=== PATIENT | female | born 1975 | race Hispanic/Latino ===

== ENCOUNTER 2017-09-17 20:56 | Emergency (ER) | payer OTHER ==
[~2017-09-17] VITALS: Ht 167.6 cm; Wt 79.4 kg
[2017-09-17] MEDS: ONDANSETRON HCL 4 MG ORAL DISINTEGRATING TAB SL ONE (21:15)
[2017-09-17] MEDS: DICYCLOMINE HCL 20 MG TAB PO ONE (21:15)
[2017-09-17] MEDS ORDERED: ZOFRAN ODT4 MG SL (22:01)
[2017-09-17] MEDS ORDERED: DICYCLOMINE HCL20 MG PO (22:01)
[2017-09-17 22:24] VITALS: BP 142/72
== END 2017-09-17 22:10 | disposition home or self-care (01) ==
LOC: FSED 20:56
DX: R19.7 Diarrhea, unspecified (principal)
CPT/HCPCS: 99282

== ENCOUNTER 2019-03-16 13:16 | Emergency (ER) | payer OTHER ==
[~2019-03-16] VITALS: Ht 167.6 cm; Wt 86.2 kg
[~2019-03-16 13:16] MED LIST: DICYCLOMINE HCL20 MG PO; ZOFRAN ODT4 MG SL
--- OUTSIDE RECORDS SUMMARY | 2019-03-16 13:19 | XMS REPORT | Summary of Care ---
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 Vital Signs Most recent to 1 oldest [Reference Range]: Height 167.64 cm (08/03/14 9:37 AM) Weight 107.273 kg (08/03/14 9:37 AM) Body Mass Index 38.17 m2 (08/03/14 9:37 AM) Problem List Condition Effective Dates Status Health Status Informant [D]Acute Active pain(Confirmed) [D]Pelvic Active mass(Confirmed) Exploratory 03/11/12 Active laparotomy(Confirmed ) Allergies, Adverse Reactions, Alerts Substance Reaction Severity Status NKDA Active Medications No data available for this section Medications Administered During Your Visit No data available for this section Immunizations Vaccine Date Refusal Reason influenza virus vaccine, inactivated 03/16/12 Social History Social History Type Response
--- OUTSIDE RECORDS SUMMARY | 2019-03-16 13:19 | XMS REPORT | Summary of Care ---
Author Author [facility] [place] Organization [facility] [place] Address Unknown Phone Unavailable Encounter [facility] Donna_doc(FIN) [id number] Date(s): 11/17/16 - 11/17/16 [facility] [place] [address] [place] [phone] Discharge Disposition: Home or Self Care Attending Physician: Van Hoffman MD Vital Signs No data available for this section Problem List Condition Effective Dates Status Health Status Informant [D]Acute Resolved pain(Confirmed) [D]Pelvic Resolved mass(Confirmed) Abdominal mass1 02/21/12 Active Exploratory 03/11/12 Resolved laparotomy(Confirmed ) Malignant tumor of 03/18/12 Active unknown origin2 (Confirmed) 06/08/08 - 08/03/08 Resolved (Confirmed) 02/18/09 - 11/25/09 Resolved (Confirmed) 11/18/14 - 12/14/14 Resolved 1Data migrated from [employer] on 11/21/14. 2Data migrated from [employer] on 11/21/14. Allergies, Adverse Reactions, Alerts Substance Reaction Severity Status NKDA Active Medications No data available for this section Results No data available for this section Immunizations Given and Recorded Vaccine Date Status Refusal Reason influenza virus vaccine, inactivated 03/16/12 Given Procedures Procedure Date Related Diagnosis Body Site Removal - procedure1, 2 03/11/12 Cholecystectomy 11/01/10 section 11/25/09 1Rem,oval of benign tumor, L tube and ovary 2with blood transfusion Social History Social History Type Response Substance Abuse Use: None. Alcohol Past1 Smoking Status Never smoker; Exposure to Tobacco Smoke None; Cigarette Smoking Last 365 Days No; Reg Smoking Cessation Counseling No 1socially when not or breastfeedng Assessment and Plan No data available for this section
--- OUTSIDE RECORDS SUMMARY | 2019-03-16 13:19 | XMS REPORT | Summary of Care ---
Author Author [facility] [place] Organization [facility] [place] Address Unknown Phone Unavailable Encounter HQ Donna_doc(FIN) [id number] Date(s): 07/24/16 - 07/24/16 [facility] [place] [address] [place] [phone] Final: Encounter for screening mammogram for malignant neoplasm of breast Discharge Disposition: Home or Self Care Attending [...] - 12/14/14 Resolved 1Data migrated from [employer] on 11/21/14. 2Data migrated from [employer] on 11/21/14. Allergies, Adverse Reactions, Alerts Substance [...]
--- OUTSIDE RECORDS SUMMARY | 2019-03-16 13:19 | XMS REPORT | Summary of Care ---
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 Phone Van Hoffman PCP Encounter [facility] [id number] Date(s): 12/14/14 - 12/16/[address] [address]- Discharge Disposition: Home Physician Attending: Van Hoffman MD Physician Admitting: Van Hoffman MD Vital Signs 1 2 3 Most recent to oldest [Reference Range]: 167.64 cm (12/14/14 8:08 AM) 167.64 cm (12/11/14 12:32 PM) Height 98.3 DegF (12/16/14 12:00 PM) 98.2 DegF (12/16/14 8:00 AM) 98.6 DegF (12/16/14 4:00 AM) Temperature Oral [96.4-99.1 DegF] 120/74 mmHg (12/16/14 12:00 PM) 116/76 mmHg (12/16/14 8:00 AM) 113/75 mmHg (12/16/14 4:00 AM) Blood Pressure [90-140/60-90 mmHg] 18 BRMIN (12/16/14 12:00 PM) 18 BRMIN (12/16/14 8:00 AM) 18 BRMIN (12/16/14 4:00 AM) Respiratory Rate [14-20 BRMIN] 80 bpm (12/16/14 12:00 PM) 70 bpm (12/16/14 8:00 AM) 77 bpm (12/16/14 4:00 AM) Peripheral Pulse Rate [60-100 bpm] 109.545 kg (12/15/14 1:54 PM) 110 kg (12/14/14 8:08 AM) 109.545 kg (12/11/14 12:32 PM) Weight 39.14 m2 (12/14/14 8:08 AM) 38.98 m2 (12/11/14 12:32 PM) Body Mass Index Problem List Condition Effective Dates Status Health Status Informant [D]Acute Resolved pain(Confirmed) [D]Pelvic Resolved mass(Confirmed) Abdominal mass1 02/21/12 Active Exploratory 03/11/12 Resolved laparotomy(Confirmed ) Malignant tumor of 03/18/12 Active unknown origin2 (Confirmed) 06/08/08 - 08/03/08 Resolved (Confirmed) 02/18/09 - 11/25/09 Resolved (Confirmed) 11/18/14 - 12/14/14 Resolved 1Data migrated from [employer] on 11/21/14. 2Data migrated from [employer] on 11/21/14. Allergies, Adverse Reactions, Alerts Substance Reaction Severity Status NKDA Active Medications acetaminophen 650 mg, 2 tab, Route: PO, Drug form: TAB, Q4H, Dosing Weight 110, kg, PRN Other -See Comment, Start date: 12/14/14 12:11:00, Duration: 30 day, Stop date: 12:10:00 Notes: Do not exceed 4 gm/day. (Same as: Tylenol) Start Date: 12/14/14 Stop Date: 12/16/14 Status: Discontinued acetaminophen-hydrocodone 325 mg-10 mg oral tablet 1 tab, Route: PO, Drug Form: TAB, Dosing Weight 110, kg, Q4H, PRN Pain Score 7-1 0, Start date: 12/14/14 12:11:00, Duration: 30 day, Stop date: 01/13/15 12:10:00 Notes: Do not exceed 4gm/day of acetaminophen. (Same as: [place] 325/10) Start Date: 12/14/14 Stop Date: 12/16/14 Status: Discontinued acetaminophen-hydrocodone 325 mg-5 mg oral tablet 1 tab, Route: PO, Drug Form: TAB, Dosing Weight 110, kg, Q4H, PRN Pain Score 4-6 , Start date: 12/14/14 12:11:00, Duration: 30 day, Stop date: 01/13/15 12:10:00 Notes: (Same as: [place] 325/5) Do not exceed 4gm/day of acetaminophen. Start Date: 12/14/14 Stop Date: 12/16/14 Status: Discontinued Benadryl 25 mg, 0.5 mL, Route: IM, Drug form: INJ, Q8H, Dosing Weight 110, kg, PRN Itchin g, Start date: 12/14/14 9:34:00, Duration: 30 day, Stop date: 01/13/15 9:33:00 Notes: (Same as: Benadryl) Start Date: 12/14/14 Stop Date: 12/16/14 Status: Discontinued bisacodyl 10 mg, 1 supp, Route: DC, Drug form: SUPP, PRN, Dosing Weight 110, kg, PRN Other -See Comment, Start date: 12/14/14 12:11:00, Duration: 30 day, Stop date: 01/13 12:10:00 Notes: (Same As: Dulcolax, Bisco-Lax) Start Date: 12/14/14 Stop Date: 12/16/14 Status: Discontinued bisacodyl 15 mg, 3 tab, Route: PO, Drug form: ECTAB, Daily, Dosing Weight 110, kg, PRN Oth er -See Comment, Start date: 12/14/14 12:11:00, Duration: 30 day, Stop date: 12:10:00 Notes: (Same As: Dulcolax, Correctol) (Do Not Crush) "Do Not Crush" Start Date: 12/14/14 Stop Date: 12/16/14 Status: Discontinued carboprost 250 microgram, 1 mL, Route: IM, Drug form: INJ, ONCALL, Dosing Weight 110, kg, S tart date: 12/14/14 9:00:00, Duration: 30 day, Stop date: 01/13/15 8:59:00 Notes: (Same As: Hemabate) Start Date: 12/14/14 Stop Date: 12/14/14 Status: Discontinued ceFAZolin 2 gm, Route: IVPB, ONCALL, Dosing Weight 110, kg, Start date: 12/14/14 9:00:00, Duration: 1 doses or times Start Date: 12/14/14 Stop Date: 12/14/14 Status: Deleted ceFAZolin + Sodium Chloride 0.9% IV 100 mL 1 gm, Route: IVPB, ONCALL, Start date: 12/14/14 9:00:00, Duration: 1 doses or ti mes Notes: (Same As: Ancef, Kefzol) MEDICATION WASTE Product Size: 1000 mgP roduct Wasted: ___ mg Start Date: 12/14/14 Stop Date: 12/14/14 Status: Completed ceFAZolin + Sodium Chloride 0.9% IV 100 mL 1 gm, Route: IVPB, ONCALL, Start date: 12/14/14 9:00:00, Duration: 1 doses or ti mes Notes: (Same As: Ancef, Kefzol) MEDICATION WASTE Product Size: 1000 mgP roduct Wasted: ___ mg Start Date: 12/14/14 Stop Date: 12/14/14 Status: Completed citric acid-sodium citrate 30 ml, Route: PO, Drug Form: SOLN, Dosing Weight 110, kg, PRE OP, Start date: 10:00:00, Duration: 30 day, Stop date: 01/13/15 9:59:00 Notes: (Same As: Bicitra) Start Date: 12/14/14 Stop Date: 12/14/14 Status: Discontinued citric acid-sodium citrate 30 mL, Route: PO, Drug Form: SOLN, Dosing Weight 110, kg, ONCE, Start date: 11/24 08/09 8:17:00, Duration: 1 doses or times, Stop date: 12/14/14 8:17:00 Notes: (Same As: Bicitra) Start Date: 12/14/14 Stop Date: 12/14/14 Status: Completed Cytotec 1,000 microgram, 5 tab, Route: DC, Drug form: TAB, ONCE, Start date: 12/14/14 11 :38:00, Stop date: 12/14/14 11:38:00 Notes: (Same as:Cytotec) Take with food Start Date: 12/14/14 Stop Date: 12/14/14 Status: Completed diphenhydrAMINE 12.5 mg, 0.25 mL, Route: IVP, Drug form: INJ, PRN, Dosing Weight 110, kg, PRN It duarte, Start date: 12/14/14 9:33:00, Duration: 30 day, Stop date: 01/13/15 9:32: 00 Notes: (Same as: Benadryl) Start Date: 12/14/14 Stop Date: 12/14/14 Status: Discontinued ePHEDrine 5 mg, 0.1 mL, Route: IVP, Drug form: INJ, Q5Min, Dosing Weight 110, kg, PRN Low Blood Pressure, Start date: 12/14/14 9:33:00, Duration: 30 day, Stop date: 01/13 9:32:00 Notes: (Same as: ePHEDrine Sulfate) Start Date: 12/14/14 Stop Date: 12/14/14 Status: Discontinued famotidine 20 mg, 2 mL, Route: IVP, Drug form: INJ, ONCE, Dosing Weight 110, kg, Start date : 12/14/14 8:17:00, Duration: 1 doses or times, Stop date: 12/14/14 8:17:00 Notes: (Same as: Pepcid)Can be dilute in 5-10cc NS IVP: Slow IV push over at le ast 2 minutes. Start Date: 12/14/14 Stop Date: 12/14/14 Status: Discontinued famotidine 20 mg, 2 mL, Route: IVP, Drug form: INJ, PRE OP, Dosing Weight 110, kg, Start da te: 12/14/14 10:00:00, Duration: 30 day, Stop date: 01/13/15 9:59:00 Notes: (Same as: Pepcid)Can be dilute in 5-10cc NS IVP: Slow IV push over at le ast 2 minutes. Start Date: 12/14/14 Stop Date: 12/14/14 Status: Completed glycopyrrolate 0.2 mg, 1 mL, Route: IVP, Drug form: INJ, Q5Min, Dosing Weight 110, kg, PRN Adrian ycardia, Start date: 12/14/14 9:33:00, Duration: 3 doses or times, Stop date: Zeenat jason # of times Notes: (Same as: Kirti) Start Date: 12/14/14 Stop Date: 12/14/14 Status: Discontinued ibuprofen 600 mg, 1 tab, Route: PO, Drug form: TAB, Q6H, Dosing Weight 110, kg, PRN Pain S core 1-5, Start date: 12/14/14 12:11:00, Duration: 30 day, Stop date: 01/13/15 1 2:10:00 Notes: (Same as: Motrin)"Do Not Crush" Take with food. Start Date: 12/14/14 Stop Date: 12/16/14 Status: Discontinued ibuprofen 800 mg, 1 tab, Route: PO, Drug form: TAB, Q8H, Dosing Weight 110, kg, PRN Pain S core 6-10, Start date: 12/14/14 12:11:00, Duration: 30 day, Stop date: 01/13/15 12:10:00 Notes: (Same as: Motrin)"Do Not Crush" Take with food. Start Date: 12/14/14 Stop Date: 12/16/14 Status: Discontinued ketOROLAC 30 mg/mL injectable solution 30 mg, 1 mL, Route: IM, Drug form: INJ, Q6H, Dosing Weight 110, kg, PRN Pain Sco re 4-6, Start date: 12/14/14 9:34:00, Duration: 4 day, Stop date: 12/18/14 9:33: 00 Notes: (Same as:Toradol) IV bolus must be given >15 seconds. Give IM administration slowly and deeply into the muscle.Not for use > 4 days MEDICATION WASTE Product Size: 30 mgProduct Wasted: ___ mg Start Date: 12/14/14 Stop Date: 12/16/14 Status: Discontinued Lactated Ringers Injection IV 1,000 mL 1,000 mL, Rate: 25 ml/hr, Infuse over: 40 hr, Route: IV, Dosing Weight 110 kg, T otal Volume: 1,000, Start date: 12/14/14 9:33:00, Duration: 30 day, Stop date: 0 01/13/15 9:32:00 Start Date: 12/14/14 Stop Date: 12/14/14 Status: Discontinued Lactated Ringers Injection IV 1,000 mL 1,000 mL, Rate: 125 ml/hr, Infuse over: 8 hr, Route: IV, Dosing Weight 110 kg, T otal Volume: 1,000, Start date: 12/14/14 8:17:00, Duration: 30 day, Stop date: 0 01/13/15 8:16:00 Start Date: 12/14/14 Stop Date: 12/14/14 Status: Discontinued Lactated Ringers IV 1,000 mL 1,000 mL, Rate: 100 ml/hr, Infuse over: 10 hr, Route: IV, Dosing Weight 110 kg, Total Volume: 1,000, Start date: 12/14/14 12:11:00, Duration: 30 day, Stop date: 01/13/15 12:10:00 Start Date: 12/14/14 Stop Date: 12/16/14 Status: Discontinued lanolin topical cream 1 appl, Route: TOP, PRN, Drug form: OINT, PRN Other -See Comment, Start date: 12:11:00, Duration: 30 day, Stop date: 01/13/15 12:10:00 Notes: (Same as:Lanolin) Start Date: 12/14/14 Stop Date: 12/16/14 Status: Discontinued M-M-R II 0.5 mL, Route: SUB-Q, Drug Form: PDR/INJ, Dosing Weight 110, kg, ONCALL, Start d ate: 12/14/14 13:00:00, Duration: 1 doses or times Notes: (Same as: M-M-R II) (phhwgrw-ifbgi-aybwtwh virus vaccine 0.5 ml INJ VL) GIVE PRIOR TO DISCHARGE Start Date: 12/14/14 Stop Date: 12/16/14 Status: Discontinued methylergonovine 0.2 mg, 1 mL, Route: IM, Drug form: INJ, ONCALL, Dosing Weight 110, kg, Start da te: 12/14/14 9:00:00, Duration: 30 day, Stop date: 01/13/15 8:59:00 Notes: (Same as:Methergine) Start Date: 12/14/14 Stop Date: 12/14/14 Status: Discontinued metoclopramide 10 mg, 2 mL, Route: IVP, Drug form: INJ, PRE OP, Dosing Weight 110, kg, Start da te: 12/14/14 10:00:00, Duration: 30 day, Stop date: 01/13/15 9:59:00 Notes: (Same as: Reglan) Start Date: 12/14/14 Stop Date: 12/14/14 Status: Completed metoclopramide 10 mg, 2 mL, Route: IV, Drug form: INJ, Q6H, Dosing Weight 110, kg, PRN Nausea & Vomiting, Start date: 12/14/14 8:17:00, Duration: 30 day, Stop date: 01/13/15 8 :16:00 Notes: (Same as: Reglan) Start Date: 12/14/14 Stop Date: 12/14/14 Status: Discontinued misoprostol 1,000 microgram, 5 tab, Route: DC, Drug form: TAB, ONCALL, Dosing Weight 110, kg , Start date: 12/14/14 9:00:00, Duration: 30 day, Stop date: 01/13/15 8:59:00 Notes: (Same as:Cytotec) Take with food Start Date: 12/14/14 Stop Date: 12/14/14 Status: Discontinued morphine Sulfate 2 mg, 1 mL, Route: IVP, Drug form: INJ, Q2H, Dosing Weight 110, kg, PRN Pain Sco re 7-10, Start date: 12/14/14 9:34:00, Duration: 30 day, Stop date: 01/13/15 9:3 3:00 Notes: (Same as:MORPhine Sulfate) Start Date: 12/14/14 Stop Date: 12/16/14 Status: Discontinued morphine Sulfate 2 mg, 1 mL, Route: IVP, Drug form: INJ, Q2H, Dosing Weight 110, kg, PRN Pain Sco re 7-10, Start date: 12/14/14 8:17:00, Duration: 30 day, Stop date: 01/13/15 8:1 6:00 Notes: (Same as:MORPhine Sulfate) Start Date: 12/14/14 Stop Date: 12/14/14 Status: Discontinued naloxone 0.1 mg, 0.25 mL, Route: IVP, Drug form: INJ, Q2MIN, Dosing Weight 110, kg, PRN N arcotic Reversal, Start date: 12/14/14 10:47:00, Duration: 8 doses or times, Sto p date: Limited # of times Notes: Same as Narcan Start Date: 12/14/14 Stop Date: 12/16/14 Status: Discontinued naloxone 0.04 mg, 0.1 mL, Route: IVP, Drug form: INJ, Q2MIN, Dosing Weight 110, kg, PRN N arcotic Reversal, Start date: 12/14/14 9:33:00, Duration: 8 doses or times, Stop date: Limited # of times Notes: Same as Herreraan Start Date: 12/14/14 Stop Date: 12/14/14 Status: Discontinued ondansetron 4 mg, 2 mL, Route: IV, Drug form: INJ, Q4H, Dosing Weight 110, kg, PRN Nausea, S tart date: 12/14/14 9:34:00, Duration: 30 day, Stop date: 01/13/15 9:33:00 Notes: (Same as: Yordy) MEDICATION WASTE Product Size: 4 mgProduct Was shyanne: ___ mg Start Date: 12/14/14 Stop Date: 12/16/14 Status: Discontinued ondansetron 4 mg, 2 mL, Route: IVP, Drug form: INJ, Q8H, Dosing Weight 110, kg, PRN Nausea & Vomiting, Start date: 12/14/14 8:17:00, Duration: 30 day, Stop date: 01/13/15 8 :16:00 Notes: (Same as: Yordy) MEDICATION WASTE Product Size: 4 mgProduct Was shyanne: ___ mg Start Date: 12/14/14 Stop Date: 12/14/14 Status: Discontinued ondansetron 4 mg, 2 mL, Route: IVP, Drug form: INJ, ONCE, Dosing Weight 110, kg, PRN Nausea & Vomiting, Start date: 12/14/14 9:33:00 Notes: (Same as: Yordy) MEDICATION WASTE Product Size: 4 mgProduct Was shyanne: ___ mg Start Date: 12/14/14 Stop Date: 12/14/14 Status: Discontinued oxytocin 30 units in LR 500 mL 30 unit 30 unit, 500 mL, Rate: 42 ml/hr, Infuse over: 11.9 hr, Dosing Weight 110, kg, Ro [place]: IV, Total Volume: 500 mL, Start date: 12/14/14 12:11:00, Duration: 1 doses or times, Stop date: 12/15/14 0:04:00, Replace Every: 11.9 hr Start Date: 12/14/14 Stop Date: 12/15/14 Status: Completed oxytocin 30 units in LR 500 mL 30 unit 30 unit, 500 mL, Rate: 42 ml/hr, Infuse over: 11.9 hr, Dosing Weight 110, kg, Ro [place]: IV, Total Volume: 500 mL, Start date: 12/14/14 8:17:00, Duration: 1 doses o r times, Stop date: 12/14/14 20:10:00, Replace Every: 11.9 hr Start Date: 12/14/14 Stop Date: 12/14/14 Status: Completed Phenergan 12.5 mg, 0.5 mL, Route: IM, Drug form: INJ, Q4H, Dosing Weight 110, kg, PRN Naus ea, Start date: 12/14/14 9:34:00, Duration: 30 day, Stop date: 01/13/15 9:33:00 Notes: Do not give IV push. (Same as: Phenergan) Start Date: 12/14/14 Stop Date: 12/16/14 Status: Discontinued Multivitamins oral tablet 1 tab, Route: PO, Drug Form: TAB, Dosing Weight 110, kg, Daily, Start date: 11/24 09/06 9:00:00, Duration: 30 day, Stop date: 01/13/15 9:00:00 Start Date: 12/15/14 Stop Date: 12/16/14 Status: Discontinued Saline Flush 0.9% 10 ml, Route: IVP, Drug Form: INJ, Dosing Weight 110, kg, PRN, PRN Line Flush, S tart date: 12/14/14 12:11:00, Duration: 30 day, Stop date: 01/13/15 12:10:00 Notes: Same as: BD Posiflush Sterile Start Date: 12/14/14 Stop Date: 12/16/14 Status: Discontinued Saline Flush 0.9% 10 ml, Route: IVP, Drug Form: INJ, Dosing Weight 110, kg, Q12H, Start date: 11/24 08/09 21:00:00, Duration: 30 day, Stop date: 01/13/15 9:00:00 Notes: Same as: BD Posiflush Sterile Start Date: 12/14/14 Stop Date: 12/16/14 Status: Discontinued simethicone 160 mg, 2 tab, Route: PO, Drug form: CHEWTAB, Q8H, Dosing Weight 110, kg, PRN Ga s, Start date: 12/14/14 12:11:00, Duration: 30 day, Stop date: 01/13/15 12:10:00 Notes: (Same as: Beck) Start Date: 12/14/14 Stop Date: 12/16/14 Status: Discontinued terbutaline 0.25 mg, 0.25 mL, Route: SUB-Q, Drug form: INJ, ONCALL, Dosing Weight 110, kg, P RN Other -See Comment, Start date: 12/14/14 8:17:00, Duration: 1 doses or times, Stop date: Limited # of times Notes: DO NOT USE IN PAINT PREPPER AREA(Same As: Marlen) Start Date: 12/14/14 Stop Date: 12/14/14 Status: Discontinued zolpidem 5 mg, 1 tab, Route: PO, Drug form: TAB, Bedtime, Dosing Weight 110, kg, PRN Inso mnia, Start date: 12/14/14 12:11:00, Duration: 30 day, Stop date: 01/13/15 12:10 :00 Notes: (Same As: Sarahi) Start Date: 12/14/14 Stop Date: 12/16/14 Status: Discontinued Results BLOOD BANK RESULTS Most recent to 1 2 oldest [Reference Range]: ABO/Rh O POS *Unknown* (12/11/14 12:42 PM) Antibody Scrn Negative (12/11/14 12:42 PM) URINE AND STOOL Most recent to 1 2 oldest [Reference Range]: UA Turbidity [Clear] Cloudy *ABN* (12/11/14 12:42 PM) UA Color [Yellow] Yellow *NA* (12/11/14 12:42 PM) UA pH [5.0-8.0] 6.0 (12/11/14 12:42 PM) UA Spec Grav 1.020 [<=1.030] (12/11/14 12:42 PM) UA Glucose Negative [Negative] (12/11/14 12:42 PM) UA Blood [Negative] Moderate *ABN* (12/11/14 12:42 PM) UA Ketones Negative [Negative] *NA* (12/11/14 12:42 PM) UA Protein Negative [Negative] (12/11/14 12:42 PM) UA Urobilinogen 0.2 EU/dL [0.1-1.0 EU/dL] (12/11/14 12:42 PM) UA Bili [Negative] Negative *NA* (12/11/14 12:42 PM) UA Leuk Est Small [Negative] *ABN* (12/11/14 12:42 PM) UA Nitrite Positive [Negative] *ABN* (12/11/14 12:42 PM) UA WBC [None Seen 21-50 /HPF /HPF] *ABN* (12/11/14 12:42 PM) UA RBC [0-2 /HPF] 6-10 /HPF *ABN* (12/11/14 12:42 PM) UA Bacteria [None Moderate /HPF Seen /HPF] (12/11/14 12:42 PM) UA Sq Epi [Few /LPF] Few /LPF (12/11/14 12:42 PM) UA Amorph Khadijah [None Few /HPF Seen /HPF] *ABN* (12/11/14 12:42 PM) UA Mucus [None Seen Rare /LPF /LPF] (12/11/14 12:42 PM) Micro? Performed (12/11/14 12:42 PM) IMMUNOLOGY Most recent to 1 2 oldest [Reference Range]: RPR [Non Reactive] Non Reactive (12/11/14 12:42 PM) HIV 1/2 Ab Negative [Negative] *NA* (12/11/14 12:42 PM) Hep Bs Ag [Negative] Negative *NA* (12/11/14 12:42 PM) HEMATOLOGY Most recent to 1 2 oldest [Reference Range]: WBC [3.7-10.4 K/CMM] 10.8 K/CMM 10.2 K/CMM *HI* (12/11/14 12:42 PM) (12/15/14 4:07 AM) RBC [4.20-5.40 3.64 M/CMM 4.16 M/CMM M/CMM] *LOW* *LOW* (12/15/14 4:07 AM) (12/11/14 12:42 PM) Hgb [12.0-16.0 g/dL] 10.8 g/dL 12.4 g/dL *LOW* (12/11/14 12:42 PM) (12/15/14 4:07 AM) Hct [36.0-48.0 %] 32.7 % 36.9 % *LOW* (12/11/14 12:42 PM) (12/15/14 4:07 AM) MCV [80.0-98.0 fL] 89.8 fL 88.8 fL (12/15/14 4:07 AM) (12/11/14 12:42 PM) MCH [27.0-31.0 pg] 29.7 pg 29.7 pg (12/15/14 4:07 AM) (12/11/14 12:42 PM) MCHC [32.0-36.0 33.1 g/dL 33.5 g/dL g/dL] (12/15/14 4:07 AM) (12/11/14 12:42 PM) RDW [11.5-14.5 %] 15.2 % 14.7 % *HI* *HI* (12/15/14 4:07 AM) (12/11/14 12:42 PM) Platelet [133-450 156 K/CMM 189 K/CMM K/CMM] (12/15/14 4:07 AM) (12/11/14 12:42 PM) MPV [7.4-10.4 fL] 9.7 fL 10.3 fL (12/15/14 4:07 AM) (12/11/14 12:42 PM) Segs [45.0-75.0 %] 75.1 % 70.8 % *HI* (12/11/14 12:42 PM) (12/15/14 4:07 AM) Lymphocytes 17.5 % 22.5 % [20.0-40.0 %] *LOW* (12/11/14:42 PM) (12/15/14 4:07 AM) Monocytes [2.0-12.0 6.9 % 5.8 % %] (12/15/14 4:07 AM) (12/11/14 12:42 PM) Eosinophils [0.0-4.0 0.3 % 0.6 % %] (12/15/14 4:07 AM) (12/11/14 12:42 PM) Basophils [0.0-1.0 0.2 % 0.3 % %] (12/15/14 4:07 AM) (12/11/14 12:42 PM) Segs-Bands # 8.1 K/CMM 7.2 K/CMM [1.5-8.1 K/CMM] (12/15/14 4:07 AM) (12/11/14 12:42 PM) Lymphocytes # 1.9 K/CMM 2.3 K/CMM [1.0-5.5 K/CMM] (12/15/14 4:07 AM) (12/11/14 12:42 PM) Monocytes # [0.0-0.8 0.7 K/CMM 0.6 K/CMM K/CMM] (12/15/14 4:07 AM) (12/11/14 12:42 PM) Eosinophils # 0.0 K/CMM 0.1 K/CMM [0.0-0.5 K/CMM] (12/15/14 4:07 AM) (12/11/14 12:42 PM) Basophils # [0.0-0.2 0.0 K/CMM 0.0 K/CMM K/CMM] (12/15/14 4:07 AM) (12/11/14 12:42 PM) Immunizations Vaccine Date Refusal Reason influenza virus vaccine, inactivated 03/16/12 Procedures Procedure Date Related Diagnosis Body Site [...] when not or breastfeedng Assessment and Plan Extracted from: Title: Postop Anesthesia Note Author: Ivan Johnston MD Date: 12/15/14 Adequate pain control. Doing well.
--- OUTSIDE RECORDS SUMMARY | 2019-03-16 13:19 | XMS REPORT | Summary of Care ---
Author Organization Unknown Address Unknown Phone Unavailable Care Team Providers Care Claim Examiner Name Role Phone Van Hoffman PCP Encounter [facility](LUISA) [id number] Date(s): 11/18/14 - 11/18/[address] [address]- Discharge Disposition: Home Physician Attending: Van Hoffman MD Physician Admitting: Van Hoffman MD Vital Signs Most recent to 1 oldest [Reference Range]: Height 167.64 cm (11/18/14 10:21 AM) Weight 109.091 kg (11/18/14 10:21 AM) Body Mass Index 38.82 m2 (11/18/14 10:21 AM) Problem List Condition Effective Dates Status Health Status Informant [D]Acute Resolved pain(Confirmed) [D]Pelvic Resolved mass(Confirmed) Exploratory 03/11/12 Resolved laparotomy(Confirmed ) (Confirmed) 06/08/08 - 08/03/08 Resolved (Confirmed) 02/18/09 - 11/25/09 Resolved (Confirmed) 11/18/14 Active Allergies, Adverse Reactions, Alerts Substance Reaction Severity Status NKDA Active Medications PNV-Total 1 cap, PO, Daily, 0 Refill(s) Start Date: 11/18/14 Status: Ordered Results No data available for this section [...]
--- OUTSIDE RECORDS SUMMARY | 2019-03-16 13:19 | XMS REPORT | CCD ---
Author Author Auto Generated Organization [facility] Address Unknown Phone Unavailable Care Team Providers Care Property Management Assistant Name Role Phone Van Hoffman RP Allergies, Adverse Reactions, Alerts Substance Reaction Status NKDA Active
--- OUTSIDE RECORDS SUMMARY | 2019-03-16 13:19 | XMS REPORT | Continuity of Care Document ---
Author Author [facility] Address Unknown Phone Unavailable Care Team Providers Care Key Entry Operator Name Role Phone DataPad Unavailable Unavailable Problems Problem Status Onset Date Classification Date Reported Comments Source HEAD PAIN/PROB SWALLOWING Active 03/16/2019 [facility] Immunization due 03/15/2019 Diagnosis 03/15/2019 [facility] Numbness of face 03/15/2019 Diagnosis 03/15/2019 [facility] Body mass index 30+ - obesity 03/15/2019 Diagnosis 03/15/2019 [facility] DX: CALLBACK RT MASS Active 10/01/2018 [facility] Overweight 09/13/2018 Diagnosis 09/13/2018 [facility] On examination - initial high BP 09/13/2018 Diagnosis 09/13/2018 [facility] Urinary tract infectious disease 09/13/2018 Diagnosis 09/13/2018 [facility] Dysfunction of eustachian tube 09/09/2018 Diagnosis 09/13/2018 [facility] Posterior rhinorrhea 09/09/2018 Diagnosis 09/13/2018 [facility] Elevated blood-pressure reading without diagnosis of hypertension 09/09/2018 Diagnosis 09/13/2018 [facility] Acute pharyngitis 09/09/2018 Diagnosis 09/13/2018 [facility] Cyst of ovary 09/09/2018 Problem 09/13/2018 [facility] SCREENINGNO PAIN,LUMPS OR DC DR. TOMLIN Active 08/27/2018 [facility] Acute abdomen 09/26/2017 12/26/2017 [facility] VENTRAL HERNIA Active 01/19/2017 [facility] Z12.13 - ENCNTR SCREEN FOR MALIGNANT NE Active 07/06/2016 [facility] PREVIUS CSECTION Active 12/14/2014 [facility] CONTRACTIONS Active 11/18/2014 [facility] LOWER ABD PAIN Active 11/18/2014 [facility] ANATOMY, AMA, NIPT NEGATIVE Active 07/22/2014 [facility] Malignant tumor of unknown origin (disorder) Active 03/18/2012 Problem 10/09/2018 Data migrated from [facility] on 11/21/14. [facility] Exploratory laparotomy (procedure) Resolved 03/11/2012 Problem 10/09/2018 [facility] Abdominal mass (finding) Active 02/21/2012 Problem 10/09/2018 Data migrated from [facility] on 11/21/14. ALESIA Hester,[facility] CYSTIC STRUCTURE Active 01/10/[address] [facility] Patient currently (finding) Resolved 06/08/2008 Problem 10/09/2018 [facility] Final: Encounter for screening mammogram for malignant neoplasm of breast 07/27/2016 ALESIA Hester Encounter for screening mammogram for malignant neoplasm of breast 09/29/2018 [facility] [D]Acute pain (context-dependent category) Resolved Problem 10/09/2018 ALESIA Hester,[facility] [D]Pelvic mass (context-dependent category) Resolved Problem 10/09/2018 [facility] DELIV NOS-UNSP Active [facility] Medications Medication Details Route Status Patient Instructions Ordering Provider Order Date Source Dicyclomine Hcl 20 Mg Tablet Three Times A Day as needed for Pain Active [facility] 09/17/2017 [facility] Ondansetron (Zofran Odt) 4 Mg Tab.rapdis Every 6 Hours as needed for Nausea Active october sub tablets in place of ODT Bahman 09/17/2017 [facility] Multivitamins oral tablet 1 tab, Route: PO, Drug Form: TAB, Dosing Weight 110, kg, Daily, Start date: 12/15/14 9:00:00, Duration: 30 day, Stop date: 01/13/15 9:00:00 No Longer Active 12/15/[address] [facility] Saline Flush 0.9% 10 ml, Route: IVP, Drug Form: INJ, Dosing Weight 110, kg, Q12H, Start date: 12/14/14 21:00:00, Duration: 30 day, Stop date: 01/13/15 9:00:00Notes: Same as: BD Posiflush Sterile No Longer Active 12/15/[address] [facility] M-M-R II 0.5 mL, Route: SUB-Q, Drug Form: PDR/INJ, Dosing Weight 110, kg, ONCALL, Start date: 12/14/14 13:00:00, Duration: 1 doses or timesNotes: (Same as: M-M-R II) (ujlkxxe-bblmt-dsrntag virus vaccine 0.5 ml INJ VL) GIVE PRIOR TO DISCHARGE No Longer Active 12/14/[address] [facility] Ibuprofen 600 mg, 1 tab, Route: PO, Drug form: TAB, Q6H, Dosing Weight 110, kg, PRN Pain Score 1-5, Start date: 12/14/14 12:11:00, Duration: 30 day, Stop date: 01/13/15 12:10:00Notes: (Same as: Motrin) "Do Not Crush" Take with food. No Longer Active 12/14/[address] [facility] Acetaminophen 325 MG / Hydrocodone Bitartrate 5 MG Oral Tablet 1 tab, Route: PO, Drug Form: TAB, Dosing Weight 110, kg, Q4H, PRN Pain Score 4-6, Start date: 12/14/14 12:11:00, Duration: 30 day, Stop date: 01/13/15 12:10:00Notes: (Same as: [place] 325/5) Do not exceed 4gm/day of acetaminophen. No Longer Active 12/14/[address] [facility] Acetaminophen 325 MG / Hydrocodone Bitartrate 10 MG Oral Tablet 1 tab, Route: PO, Drug Form: TAB, Dosing Weight 110, kg, Q4H, PRN Pain Score 7-10, Start date: 12/14/14 12:11:00, Duration: 30 day, Stop date: 01/13/15 12:10:00Notes: Do not exceed 4gm/day of acetaminophen. (Same as: [place] 325/10) No Longer Active 12/14/2014 [facility] Saline Flush 0.9% 10 ml, Route: IVP, Drug Form: INJ, Dosing Weight 110, kg, PRN, PRN Line Flush, Start date: 12/14/14 12:11:00, Duration: 30 day, Stop date: 01/13/15 12:10:00Notes: Same as: BD Posiflush Sterile No Longer Active 12/14/2014 [facility] lanolin topical cream 1 appl, Route: TOP, PRN, Drug form: OINT, PRN Other -See Comment, Start date: 12/14/14 12:11:00, Duration: 30 day, Stop date: 01/13/15 12:10:00Notes: (Same as:Lanolin) No Longer Active 12/14/2014 [facility] zolpidem 5 mg, 1 tab, Route: PO, Drug form: TAB, Bedtime, Dosing Weight 110, kg, PRN Insomnia, Start date: 12/14/14 12:11:00, Duration: 30 day, Stop date: 01/13/15 12:10:00Notes: (Same As: Ambien) No Longer Active 12/14/2014 [facility] Simethicone 160 mg, 2 tab, Route: PO, Drug form: CHEWTAB, Q8H, Dosing Weight 110, kg, PRN Gas, Start date: 12/14/14 12:11:00, Duration: 30 day, Stop date: 01/13/15 12:10:00Notes: (Same as: Mylicon) No Longer Active 12/14/2014 [facility] Acetaminophen 650 mg, 2 tab, Route: PO, Drug form: TAB, Q4H, Dosing Weight 110, kg, PRN Other -See Comment, Start date: 12/14/14 12:11:00, Duration: 30 day, Stop date: 01/13/15 12:10:00Notes: Do not exceed 4 gm/day. (Same as: Tylenol) No Longer Active 12/14/2014 [facility] Bisacodyl 10 mg, 1 supp, Route: CO, Drug form: SUPP, PRN, Dosing Weight 110, kg, PRN Other -See Comment, Start date: 12/14/14 12:11:00, Duration: 30 day, Stop date: 01/13/15 12:10:00Notes: (Same As: Dulcolax, Bisco- Lax) No Longer Active 12/14/2014 [facility] Lactated Ringers IV 1,000 mL 1,000 mL, Rate: 100 ml/hr, Infuse over: 10 hr, Route: IV, Dosing Weight 110 kg, Total Volume: 1,000, Start date: 12/14/14 12:11:00, Duration: 30 day, Stop date: 01/13/15 12:10:00 No Longer Active 12/14/2014 [facility] Oxytocin 0.06 UNT/ML Injectable Solution 30 unit, 500 mL, Rate: 42 ml/hr, Infuse over: 11.9 hr, Dosing Weight 110, kg, Route: IV, Total Volume: 500 mL, Start date: 12/14/14 12:11:00, Duration: 1 doses or times, Stop date: 12/15/14 0:04:00, Replace Every: 11.9 hr No Longer Active 12/14/2014 [facility] Cytotec 1,000 microgram, 5 tab, Route: CO, Drug form: TAB, ONCE, Start date: 12/14/14 11:38:00, Stop date: 12/14/14 11:38:00Notes: (Same as:Cytotec) Take with food Inactive 12/14/2014 [facility] Naloxone 0.1 mg, 0.25 mL, Route: IVP, Drug form: INJ, Q2MIN, Dosing Weight 110, kg, PRN Narcotic Reversal, Start date: 12/14/14 10:47:00, Duration: 8 doses or times, Stop date: Limited # of timesNotes: Same as Narcan No Longer Active 12/14/2014 [facility] Metoclopramide 10 mg, 2 mL, Route: IVP, Drug form: INJ, PRE OP, Dosing Weight 110, kg, Start date: 12/14/14 10:00:00, Duration: 30 day, Stop date: 01/13/15 9:59:00Notes: (Same as: Reglan) Inactive 12/14/2014 [facility] Citric Acid / sodium citrate 30 ml, Route: PO, Drug Form: SOLN, Dosing Weight 110, kg, PRE OP, Start date: 12/14/14 10:00:00, Duration: 30 day, Stop date: 01/13/15 9:59:00Notes: (Same As: Bicitra) Inactive 12/14/2014 [facility] Famotidine 20 mg, 2 mL, Route: IVP, Drug form: INJ, PRE OP, Dosing Weight 110, kg, Start date: 12/14/14 10:00:00, Duration: 30 day, Stop date: 01/13/15 9:59:00Notes: (Same as: Pepcid) Can be dilute in 5-10cc NS IVP: Slow IV push over at least 2 minutes. Inactive 12/14/[address] [facility] Morphine 2 mg, 1 mL, Route: IVP, Drug form: INJ, Q2H, Dosing Weight 110, kg, PRN Pain Score 7-10, Start date: 12/14/14 9:34:00, Duration: 30 day, Stop date: 01/13/15 9:33:00Notes: (Same as:MORPhine Sulfate) No Longer Active 12/14/[address] [facility] ketOROLAC 30 mg/mL injectable solution 30 mg, 1 mL, Route: IM, Drug form: INJ, Q6H, Dosing Weight 110, kg, PRN Pain Score 4-6, Start date: 12/14/14 9:34:00, Duration: 4 day, Stop date: 12/18/14 9:33:00Notes: (Same as:Toradol) IV bolus must be given >15 seconds. Give IM administration slowly and deeply into the muscle. Not for use > 4 days MEDICATION WASTE Product Size: 30 mg Product Wasted: ___ mg No Longer Active 12/14/[address] [facility] Phenergan 12.5 mg, 0.5 mL, Route: IM, Drug form: INJ, Q4H, Dosing Weight 110, kg, PRN Nausea, Start date: 12/14/14 9:34:00, Duration: 30 day, Stop date: 01/13/15 9:33:00Notes: Do not give IV push. (Same as: Cedrick rodriguez) No Longer Active 12/14/[address] [facility] Ondansetron 4 mg, 2 mL, Route: IV, Drug form: INJ, Q4H, Dosing Weight 110, kg, PRN Nausea, Start date: 12/14/14 9:34:00, Duration: 30 day, Stop date: 01/13/15 9:33:00Notes: (Same as: Zofran) MEDICATION WASTE Product Size: 4 mg Product Wasted: ___ mg No Longer Active 12/14/[address] [facility] Benadryl 25 mg, 0.5 mL, Route: IM, Drug form: INJ, Q8H, Dosing Weight 110, kg, PRN Itching, Start date: 12/14/14 9:34:00, Duration: 30 day, Stop date: 01/13/15 9:33:00Notes: (Same as: Benadryl) No Longer Active 12/14/2014 [facility] Calcium Chloride 0.0014 MEQ/ML / Potassium Chloride 0.004 MEQ/ML / Sodium Chloride 0.103 MEQ/ML / Sodium Lactate 0.028 MEQ/ML Injectable Solution 1,000 mL, Rate: 25 ml/hr, Infuse over: 40 hr, Route: IV, Dosing Weight 110 kg, Total Volume: 1,000, Start date: 12/14/14 9:33:00, Duration: 30 day, Stop date: 01/13/15 9:32:00 Inactive 12/14/2014 [facility] Naloxone 0.04 mg, 0.1 mL, Route: IVP, Drug form: INJ, Q2MIN, Dosing Weight 110, kg, PRN Narcotic Reversal, Start date: 12/14/14 9:33:00, Duration: 8 doses or times, Stop date: Limited # of timesNotes: Same as Narcan Inactive 12/14/2014 [facility] Ephedrine 5 mg, 0.1 mL, Route: IVP, Drug form: INJ, Q5Min, Dosing Weight 110, kg, PRN Low Blood Pressure, Start date: 12/14/14 9:33:00, Duration: 30 day, Stop date: 01/13/15 9:32:00Notes: (Same as: ePHEDrine Sulfate) Inactive 12/14/2014 [facility] Ondansetron 4 mg, 2 mL, Route: IVP, Drug form: INJ, ONCE, Dosing Weight 110, kg, PRN Nausea & Vomiting, Start date: 12/14/14 9:33:00Notes: (Same as: Yordy) MEDICATION WASTE Product Size: 4 mg Product Wasted: ___ mg Inactive 12/14/2014 [facility] Glycopyrrolate 0.2 mg, 1 mL, Route: IVP, Drug form: INJ, Q5Min, Dosing Weight 110, kg, PRN Bradycardia, Start date: 12/14/14 9:33:00, Duration: 3 doses or times, Stop date: Limited # of timesNotes: (Same as: Saeid hinojosa) Inactive 12/14/2014 [facility] Diphenhydramine 12.5 mg, 0.25 mL, Route: IVP, Drug form: INJ, PRN, Dosing Weight 110, kg, PRN Itching, Start date: 12/14/14 9:33:00, Duration: 30 day, Stop date: 01/13/15 9:32:00Notes: (Same as: Benadryl) Inactive 12/14/2014 [facility] ceFAZolin + Sodium Chloride 0.9% IV 100 mL 1 gm, Route: IVPB, ONCALL, Start date: 12/14/14 9:00:00, Duration: 1 doses or timesNotes: (Same As: AncXavi josephfzol) MEDICATION WASTE Product Size: 1000 mg Product Wasted: ___ mg Inactive 12/14/2014 [facility] Cefazolin 2 gm, Route: IVPB, ONCALL, Dosing Weight 110, kg, Start date: 12/14/14 9:00:00, Duration: 1 doses or times Inactive 12/14/2014 [facility] Carboprost 250 microgram, 1 mL, Route: IM, Drug form: INJ, ONCALL, Dosing Weight 110, kg, Start date: 12/14/14 9:00:00, Duration: 30 day, Stop date: 01/13/15 8:59:00Notes: (Same As: Hemabate) Inactive 12/14/2014 [facility] Methylergonovine 0.2 mg, 1 mL, Route: IM, Drug form: INJ, ONCALL, Dosing Weight 110, kg, Start date: 12/14/14 9:00:00, Duration: 30 day, Stop date: 01/13/15 8:59:00Notes: (Same as:Methergine) Inactive 12/14/2014 [facility] Misoprostol 1,000 microgram, 5 tab, Route: CO, Drug form: TAB, ONCALL, Dosing Weight 110, kg, Start date: 12/14/14 9:00:00, Duration: 30 day, Stop date: 01/13/15 8:59:00Notes: (Same as:Cytotec) Take with food Inactive 12/14/[address] [facility] Famotidine 20 mg, 2 mL, Route: IVP, Drug form: INJ, ONCE, Dosing Weight 110, kg, Start date: 12/14/14 8:17:00, Duration: 1 doses or times, Stop date: 12/14/14 8:17:00Notes: (Same as: Pepcid) Can be dilute in 5- 10cc NS IVP: Slow IV push over at least 2 minutes. Inactive 12/14/[address] [facility] Morphine 2 mg, 1 mL, Route: IVP, Drug form: INJ, Q2H, Dosing Weight 110, kg, PRN Pain Score 7-10, Start date: 12/14/14 8:17:00, Duration: 30 day, Stop date: 01/13/15 8:16:00Notes: (Same as:MORPhine Sulfate) Inactive 12/14/[address] [facility] Ondansetron 4 mg, 2 mL, Route: IVP, Drug form: INJ, Q8H, Dosing Weight 110, kg, PRN Nausea & Vomiting, Start date: 12/14/14 8:17:00, Duration: 30 day, Stop date: 01/13/15 8:16:00Notes: (Same as: Zofran) M EDICATION WASTE Product Size: 4 mg Product Wasted: ___ mg Inactive 12/14/[address] [facility] Metoclopramide 10 mg, 2 mL, Route: IV, Drug form: INJ, Q6H, Dosing Weight 110, kg, PRN Nausea & Vomiting, Start date: 12/14/14 8:17:00, Duration: 30 day, Stop date: 01/13/15 8:16:00Notes: (Same as: Reglan) Inactive 12/14/[address] [facility] Calcium Chloride 0.0014 MEQ/ML / Potassium Chloride 0.004 MEQ/ML / Sodium Chloride 0.103 MEQ/ML / Sodium Lactate 0.028 MEQ/ML Injectable Solution 1,000 mL, Rate: 125 ml/hr, Infuse over: 8 hr, Route: IV, Dosing Weight 110 kg, Total Volume: 1,000, Start date: 12/14/14 8:17:00, Duration: 30 day, Stop date: 01/13/15 8:16:00 Inactive 12/14/[address] [facility] Oxytocin 0.06 UNT/ML Injectable Solution 30 unit, 500 mL, Rate: 42 ml/hr, Infuse over: 11.9 hr, Dosing Weight 110, kg, Route: IV, Total Volume: 500 mL, Start date: 12/14/14 8:17:00, Duration: 1 doses or times, Stop date: 12/14/14 20:10:00, Replace Every: 11.9 hr Inactive 12/14/[address] [facility] Terbutaline 0.25 mg, 0.25 mL, Route: SUB-Q, Drug form: INJ, ONCALL, Dosing Weight 110, kg, PRN Other -See Comment, Start date: 12/14/14 8:17:00, Duration: 1 doses or times, Stop date: Limited # of timesNotes: DO NOT USE IN FIELD SERVICES DIRECT[employer] AREA (Same As: Brethine) Inactive 12/14/2014 [facility] Citric Acid / sodium citrate 30 mL, Route: PO, Drug Form: SOLN, Dosing Weight 110, kg, ONCE, Start date: 12/14/14 8:17:00, Duration: 1 doses or times, Stop date: 12/14/14 8:17:00Notes: (Same As: Bicitra) Inactive 12/14/[address] [facility] PNV-Total 1 cap, PO, Daily, 0 Refill(s) Active 11/18/2014 [facility] Fluticasone propionate 0.05 MG/ACTUAT Metered Dose Nasal [place] fluticasone propionate 50 mcg/actuation nasal spray,suspension [place] 2 sprays every day by intranasal route for 30 days. Active [facility] Junel Fe 24 1 mg-20 mcg (24)/75 mg (4) tablet Jun[place] Fe 24 1 mg-20 mcg (24)/75 mg (4) tablet Active [facility] levocetirizine dihydrochloride 5 MG Oral Tablet levocetirizine 5 mg tablet Take 1 tablet every day by oral route for 30 days. Active [facility] Sulfamethoxazole 800 MG / Trimethoprim 160 MG Oral Tablet [Bactrim] Bactrim DS 800 mg-160 mg tablet Take 1 tablet every 12 hours by oral route for 7 days. Active [facility] No Medications Reported No Medications Reported Active [facility] Allergies, Adverse Reactions, Alerts No Known Medication Allergies Immunizations Immunization Date Given Site Status Last Updated Comments Source influenza, injectable, quadrivalent 03/25/2018 completed [facility] influenza, injectable, quadrivalent 03/14/2017 completed [facility] Tdap 01/23/2017 completed [facility] influenza virus vaccine, inactivated 03/16/2012 Left deltoid completed [facility] ALESIA Hester,[facility] Results Order Name Results Value Reference Range Date Interpretation Comments Source Urinalysis macro (dipstick) panel - Urine COLOR : Yellow 09/13/2018 [facility] Urinalysis macro (dipstick) panel - Urine CLARITY : Clear 09/13/2018 [facility] Urinalysis macro (dipstick) panel - Urine LEUKOCYTES : Trace 09/13/2018 [facility] Urinalysis macro (dipstick) panel - Urine NITRITES : Negative 09/13/2018 [facility] Urinalysis macro (dipstick) panel - Urine UROBILINOGEN : Normal 09/13/2018 [facility] Urinalysis macro (dipstick) panel - Urine PROTEIN : Negative 09/13/2018 [facility] Urinalysis macro (dipstick) panel - Urine pH : 6.5 09/13/2018 [facility] Urinalysis macro (dipstick) panel - Urine BLOOD : Non- hemolized Trace 09/13/2018 [facility] Urinalysis macro (dipstick) panel - Urine SPECIFIC GRAVITY : 1.005 09/13/2018 [facility] Urinalysis macro (dipstick) panel - Urine KETONES : Negative 09/13/2018 [facility] Urinalysis macro (dipstick) panel - Urine BILIRUBIN : Negative 09/13/2018 [facility] Urinalysis macro (dipstick) panel - Urine GLUCOSE Negative 09/13/2018 [facility] RESULT positive 09/13/2018 [facility] SWAB LOCATION Left and Right tonsillar pillars 09/13/2018 [facility] Bacteria identified in Unspecified specimen by Respiratory culture Bacteria identified in Unspecified specimen by Respiratory culture final report 09/12/2018 [facility] Bacteria identified in Unspecified specimen by Respiratory culture Bacteria identified in Unspecified specimen by Respiratory culture rrf 09/12/2018 [facility] RESULT positive 09/09/2018 [facility] SWAB LOCATION Left and Right tonsillar pillars 09/09/2018 [facility] HEMATOLOGY Segs-Bands # 8.1 1.5 - 8.1 12/15/[address] [facility] HEMATOLOGY Basophils 0.2 0.0 - 1.0 12/15/[address] [facility] HEMATOLOGY Segs 75.1 45.0 - 75.0 12/15/[address] [facility] HEMATOLOGY Lymphocytes 17.5 20.0 - 40.0 12/15/[address] [facility] HEMATOLOGY Eosinophils 0.3 0.0 - 4.0 12/15/[address] [facility] HEMATOLOGY Monocytes 6.9 2.0 - 12.0 12/15/[address] [facility] HEMATOLOGY Lymphocytes # 1.9 1.0 - 5.5 12/15/[address] [facility] HEMATOLOGY Basophils # 0.0 0.0 - 0.2 12/15/[address] [facility] HEMATOLOGY Eosinophils # 0.0 0.0 - 0.5 12/15/[address] [facility] HEMATOLOGY Monocytes # 0.7 0.0 - 0.8 12/15/[address] [facility] HEMATOLOGY RDW 15.2 11.5 - 14.5 12/15/[address] [facility] HEMATOLOGY Platelet 156 133 - 450 12/15/[address] [facility] HEMATOLOGY MPV 9.7 7.4 - 10.4 12/15/[address] [facility] HEMATOLOGY WBC 10.8 3.7 - 10.4 12/15/[address] [facility] HEMATOLOGY RBC 3.64 4.20 - 5.40 12/15/[address] [facility] HEMATOLOGY Hgb 10.8 12.0 - 16.0 12/15/[address] [facility] HEMATOLOGY Hct 32.7 36.0 - 48.0 12/15/[address] [facility] HEMATOLOGY MCV 89.8 80.0 - 98.0 12/15/[address] [facility] HEMATOLOGY MCH 29.7 27.0 - 31.0 12/15/[address] [facility] HEMATOLOGY MCHC 33.1 32.0 - 36.0 12/15/[address] [facility] BLOOD BANK RESULTS Antibody Scrn Negative (12/11/14 12:42 PM) 12/11/[address] [facility] BLOOD BANK RESULTS ABO/Rh O POS 12/11/[address] [facility] HEMATOLOGY Basophils # 0.0 0.0 - 0.2 12/11/[address] [facility] HEMATOLOGY Eosinophils # 0.1 0.0 - 0.5 12/11/[address] [facility] HEMATOLOGY Monocytes # 0.6 0.0 - 0.8 12/11/[address] [facility] HEMATOLOGY Lymphocytes # 2.3 1.0 - 5.5 12/11/[address] [facility] HEMATOLOGY Segs-Bands # 7.2 1.5 - 8.1 12/11/[address] [facility] HEMATOLOGY Basophils 0.3 0.0 - 1.0 12/11/[address] [facility] HEMATOLOGY Eosinophils 0.6 0.0 - 4.0 12/11/[address] [facility] HEMATOLOGY Monocytes 5.8 2.0 - 12.0 12/11/[address] [facility] HEMATOLOGY Lymphocytes 22.5 20.0 - 40.0 12/11/[address] [facility] HEMATOLOGY Segs 70.8 45.0 - 75.0 12/11/[address] [facility] HEMATOLOGY MCV 88.8 80.0 - 98.0 12/11/[address] [facility] HEMATOLOGY Hgb 12.4 12.0 - 16.0 12/11/[address] [facility] HEMATOLOGY Hct 36.9 36.0 - 48.0 12/11/[address] [facility] HEMATOLOGY RBC 4.16 4.20 - 5.40 12/11/[address] [facility] HEMATOLOGY WBC 10.2 3.7 - 10.4 12/11/[address] [facility] HEMATOLOGY MPV 10.3 7.4 - 10.4 12/11/[address] [facility] HEMATOLOGY Platelet 189 133 - 450 12/11/[address] [facility] HEMATOLOGY MCHC 33.5 32.0 - 36.0 12/11/[address] [facility] HEMATOLOGY RDW 14.7 11.5 - 14.5 12/11/[address] [facility] HEMATOLOGY MCH 29.7 27.0 - 31.0 12/11/[address] [facility] IMMUNOLOGY RPR Non Reactive (12/11/14 12:42 PM) Non Reactive 12/11/[address] [facility] IMMUNOLOGY Hep Bs Ag Negative *NA* (12/11/14 12:42 PM) Negative 12/11/[address] [facility] IMMUNOLOGY HIV 1/2 Ab Negative *NA* (12/11/14 12:42 PM) Negative 12/11/[address] [facility] URINE AND STOOL UA Protein Negative (12/11/14 12:42 PM) Negative 12/11/[address] [facility] URINE AND STOOL UA pH 6.0 5.0 - 8.0 12/11/[address] [facility] URINE AND STOOL UA Urobilinogen 0.2 0.1 - 1.0 12/11/[address] [facility] URINE AND STOOL UA Spec Grav 1.020 <=1.030 12/11/[address] [facility] URINE AND STOOL UA Bili Negative *NA* (12/11/14 12:42 PM) Negative 12/11/[address] [facility] URINE AND STOOL UA Blood Moderate *ABN* (12/11/14 12:42 PM) Negative 12/11/[address] [facility] URINE AND STOOL UA Ketones Negative *NA* (12/11/14 12:42 PM) Negative 12/11/[address] [facility] URINE AND STOOL UA Glucose Negative (12/11/14 12:42 PM) Negative 12/11/[address] [facility] URINE AND STOOL UA WBC 21-50 /HPF None Seen /HPF 12/11/[address] [facility] URINE AND STOOL UA RBC 6-10 /HPF 0 - 2 12/11/[address] [facility] [facility] URINE AND STOOL Micro? Performed (12/11/14 12:42 PM) 12/11/[address] [facility] URINE AND STOOL UA Sq Epi Few /LPF Few /LPF 12/11/[address] [facility] URINE AND STOOL UA Amorph Khadijah Few /HPF None Seen /HPF 12/11/[address] [facility] URINE AND STOOL UA Bacteria Moderate /HPF None Seen /HPF 12/11/[address] [facility] URINE AND STOOL UA Mucus Rare /LPF None Seen /LPF 12/11/[address] [facility] URINE AND STOOL UA Leuk Est Small *ABN* (12/11/14 12:42 PM) Negative 12/11/[address] [facility] URINE AND STOOL UA Nitrite Positive *ABN* (12/11/14 12:42 PM) Negative 12/11/[address] [facility] URINE AND STOOL UA Color Yellow *NA* (12/11/14 12:42 PM) Yellow 12/11/[address] [facility] URINE AND STOOL UA Turbidity Cloudy *ABN* (12/11/14 12:42 PM) Clear 12/11/[address] [facility] Pathology Reports No Data Provided for This Section Diagnostic Reports Report Value Date Source Breast Complete Uni US COMPLETE ULTRASOUND OF RIGHT BREAST AND AXILLA: 10/07/2018 CLINICAL: /Nodule abnormal mammogram, mammographic nodule/density. COMPARISON:Comparison is made to exams dated: 10/07/2018 mammogram, 09/27/2018 mammogram - [facility], 09/19/2017 mammogram, and 07/24/2016 mammogram - [facility]. TECHNIQUE: Color flow and real-time ultrasound of the right breast four quadrants, retroareolar, and axilla regions were performed. Diez scale images of the real-time examination were reviewed. FINDINGS: There is a 1 cm lobulated mass with a circumscribed margin in the right breast at 9 o'clock middle depth 5 cm from the nipple. This lobulated mass is hypoechoic with posterior acoustic enhancement. This correlates with mammography findings. Color flow imaging demonstrates that there is no vascularity present. No abnormalities were seen sonographically in the right axilla. IMPRESSION: PROBABLY BENIGN The 1 cm lobulated mass in the right breast resembles a complicated cyst or a fibroadenoma and is probably benign. A follow-up in 6 months is recommended. A follow up right breast ultrasound with possible diagnostic mammogram in 6 months is recommended to demonstrate stability.(04/08/2019) The results were reviewed with the patient. This exam was interpreted at [id number] for [facility]. Catalina petersent/:10/07/2018 08:44:34 Inspecting Engineer(s): [place] [facility] letter sent: BI-RADS 3 Ultrasound BI-RADS: 3 Probably benign 10/07/2018 [facility] Breast Mammo Diag UNI w zoila incl CAD MA UNILATERAL RIGHT DIGITAL DIAGNOSTIC MAMMOGRAM 3D/2D WITH CAD: 10/07/2018 CLINICAL: /Callback abnormal mammogram, mammographic nodule/density. Current study was evaluated with a Computer Aided Detection (CAD) system. COMPARISON:Comparison is made to exams dated: 09/27/2018 mammogram - [facility], 09/19/2017 mammogram, and 07/24/2016 mammogram - [facility]. TECHNIQUE: Digital Breast Tomosynthesis was performed and utilized for Interpretation. [employer] Version 1.3 was utilized for computer aided detection. FINDINGS: The tissue of right breast is heterogeneously dense, which could obscure detection of small masses. There is an oval mass with a circumscribed margin in the right breast at 9 o'clock middle depth. This correlates with the prior exam. No other significant masses or calcifications are seen in the breast. IMPRESSION: INCOMPLETE: NEEDS ADDITIONAL IMAGING EVALUATION RECOMMENDATION:The oval mass in the right breast resembles a cyst or an intramammary node and is indeterminate. An ultrasound is recommended. The results were reviewed with the patient. This exam was interpreted at [id number] for [facility]. SUMMARY: Ultrasound will be performed at this time; please see dedicated separate report. Catalina lema/riccardorad:10/07/2018 08:28:19 Inspecting Engineer([facility] BI-RADS: 0 Indeterminate 10/07/2018 [facility] Breast Mammo Scrn HOMAR w zoila incl CAD MA BILATERAL DIGITAL SCREENING MAMMOGRAM 3D/2D WITH CAD: 09/27/2018 CLINICAL: /Screen. Current study was evaluated with a Computer Aided Detection (CAD) system. COMPARISON:Comparison is made to exams dated: 09/19/2017 mammogram and 07/24/2016 mammogram - [facility]. TECHNIQUE: Digital Breast Tomosynthesis was performed and utilized for Interpretation. [employer] Version 1.3 was utilized for computer aided detection. FINDINGS: The tissue of both breasts is heterogeneously dense, which could obscure detection of small masses. There is a nodule in the right breast at 9 o'clock anterior depth. No other significant masses, calcifications, or other findings are seen in either breast. IMPRESSION: INCOMPLETE: NEEDS ADDITIONAL IMAGING EVALUATION RECOMMENDATION:The nodule in the right breast is indeterminate. Spot compression and lateral views as well as an ultrasound are recommended. Bilateral breast ultrasound may be performed due to breast density. This exam was interpreted at [id number] for [facility]. Monty Pepper M.D. ap/:09/27/2018 13:34:48 Inspecting Engineer(s): Harleen Rincon [facility] letter sent: BI-RADS 0 Mammogram BI-RADS: 0 Indeterminate 09/27/2018 [facility] Abdomen/Pelvis wo IV contrast CT HISTORY: - R10.0 Acute abdomen; R10.13 Epigastric pain TECHNIQUE: Contiguous axial CT images of the abdomen and pelvis were obtained without intravenous contrast. Enteric contrast was administered. Additionally, both coronal and sagittal reformats were also submitted for interpretation. DOSE: Total DLP 642 mGy/cm. This exam was performed according to the departmental dose-optimization program which includes automated exposure control, adjustment of the mA and/or kV according to patient size, and/or use of iterative reconstruction technique. COMPARISON: Study dated 11/17/2016. FINDINGS: The lung bases are clear. The inferior aspect of the heart is grossly unremarkable. There is no pleural or pericardial effusion. Patient has undergone prior cholecystectomy. The unenhanced liver, spleen, pancreas, kidneys, and adrenals are grossly unremarkable. There is no pathologic by size criteria retroperitoneal or mesenteric lymphadenopathy. Changes from prior ventral hernia repair seen. The appendix is not definitively identified; however, there are no secondary findings to suggest acute appendicitis. The remainder of the bowel is grossly unremarkable. Contrast is seen to the level of the distal ileum. Patient has undergone prior hysterectomy. Gas is noted in the vaginal cuff. The bladder is within normal limits. There is no abnormal adnexal mass. Multiple surgical clips are again seen in the left hemipelvis. 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 Minimal osseous degenerative changes are present. There is no suspicious lytic or blastic lesion. IMPRESSION: 1. No evidence of acute abdominopelvic pathology. 2. Surgical and other chronic findings as above. [id number] 09/19/2017 [facility] [place] Breast Mammo Scrn HOMAR incl CAD MA BILATERAL DIGITAL SCREENING MAMMOGRAM WITH CAD: 09/19/2017 CLINICAL: Routine/Screening. Current study was evaluated with a Computer Aided Detection (CAD) system. COMPARISON:Comparison is made to exam dated: 07/24/2016 mammogram - [facility]. TECHNIQUE: Mammographic views were obtained using digital acquisition. Current study was also evaluated with a Computer Aided Detection (CAD) system. FINDINGS: The tissue of both breasts is heterogeneously dense, which could obscure detection of small masses. No significant masses, calcifications, or other findings are seen in either breast. There has been no significant interval change. IMPRESSION: NEGATIVE RECOMMENDATION:There is no mammographic evidence of malignancy. A 1 year screening mammogram is recommended.(09/20/2018) This exam was interpreted at [id number] for LENNOX Marie 15. Professional services are provided by the [facility]. José Garcia M.D., cm/heri:09/19/2017 15:26:13 Inspecting Engineer(s): RT Bhumi(R)(Martínez), [facility] letter sent: BI-RADS 1/2 Dense Mammogram BI-RADS: 1 Negative 09/19/2017 [facility]ester Abdomen/Pelvis w IV contrast CT Exam: CT Scan of the abdomen and pelvis with contrast Reason for Exam: - R19.00 Intra-abdominal and pelvic swelling, mass and lump, unspecified site Comparison Exam: MRI exam 09/19/[address] scan 01/13/2008 Technique: Multiple axial images were obtained of the abdomen and pelvis. 5 mm slices were acquired after injection of 100 cc Omnipaque 300 IV. Oral contrast was also given. Reformatted sagittal and coronal images were obtained for additional diagnostic information. Total exam NWX=5860 mGy-cm. This exam was performed according to our departmental dose-optimization program, which includes automated exposure control, adjustment of the MA and/or KV according to patient size and/or use of iterative reconstruction technique. Discussion: Visualized portions of the lung bases are unremarkable. Liver is unremarkable. Portal venous system is patent. The patient is status post cholecystectomy. No biliary duct dilation. Small hiatal hernia. Pancreas, adrenal glands, and spleen are within normal limits. Stomach is unremarkable. No dilated loops of bowel. The appendix is not definitively seen. However, there is no ancillary evidence to suggest appendicitis. There is a large infraumbilical ventral hernia containing nondistended loops of small bowel. Bladder is unremarkable. Uterus appears heterogeneous suggestive of multiple fibroids. No appreciable lymphadenopathy. No acute bony abnormalities appreciated. No suspicious osteoblastic or osteolytic lesions. No evidence seen for abdominal aortic aneurysm or dissection. Impression: 1. Large infraumbilical ventral hernia containing nondistended loops of small bowel. 11/17/2016 [facility] H[facility] Digital Mammo Screening Homar MA - DIGITAL MAMMO SCREENING HOMAR MA BILATERAL FIRST EVER DIGITAL SCREENING MAMMOGRAM WITH CAD: 07/24/2016 CLINICAL: Routine. Current study was evaluated with a Computer Aided Detection (CAD) system. No prior exams were available for comparison. There are scattered fibroglandular densities in both breasts. No significant masses, calcifications, or other findings are seen in either breast. IMPRESSION: NEGATIVE There is no mammographic evidence of malignancy. A 1 year screening mammogram is recommended. Professional services are provided by the [facility]. Racheal colvin/heri:07/24/2016 10:37:12 Inspecting Engineer: Mikki GONSALEZ (R)(Martínez), [facility] This exam was dictated and interpreted by [id number] for MARTI Jacobs. letter sent: Normal exam Mammogram BI-RADS: 1 Negative 07/24/2016 ALESIA Hester Consultation Notes No Data Provided for This Section Discharge Summaries No Data Provided for This Section History and Physicals No Data Provided for This Section Vital Signs Vital Sign Value Date Comments Source Diastolic (mm Hg) 80 03/15/2019 [facility] Height 66 03/15/2019 [facility] Systolic (mm Hg) 118 03/15/2019 [facility] Weight 195 03/15/2019 [facility] Diastolic (mm Hg) 80 09/13/2018 [facility] Height 66 09/13/2018 [facility] Systolic (mm Hg) 112 09/13/2018 [facility] Weight 187 09/13/2018 [facility] Diastolic (mm Hg) 74 09/09/2018 [facility] Height 66 09/09/2018 [facility] Systolic (mm Hg) 126 09/09/2018 [facility] Weight 187 09/09/2018 [facility] Systolic (mm Hg) 120 12/16/2014 [facility] Diastolic (mm Hg) 74 12/16/2014 [facility] Respitory Rate 18 12/16/2014 [facility] Temperature Oral (F) 98.3 F 12/16/2014 [facility] Heart Rate 80 12/16/2014 [facility] Heart Rate 70 12/16/2014 [facility] Temperature Oral (F) 98.2 F 12/16/2014 [facility] Respitory Rate 18 12/16/2014 [facility] Systolic (mm Hg) 116 12/16/2014 [facility] Diastolic (mm Hg) 76 12/16/2014 [facility] Heart Rate 77 12/16/2014 [facility] Respitory Rate 18 12/16/2014 [facility] Systolic (mm Hg) 113 12/16/2014 [facility] Diastolic (mm Hg) 75 12/16/2014 [facility] Temperature Oral (F) 98.6 F 12/16/2014 [facility] Weight 109.545 12/15/2014 [facility] Weight 110 12/14/2014 [facility] BMI Calculated 39.14 12/14/2014 [facility] Height 167.64 cm 12/14/[address] [facility] Weight 109.545 12/11/[address] [facility] BMI Calculated 38.98 12/11/[address] [facility] Height 167.64 cm 12/11/[address] [facility] Height 167.64 cm 11/18/[address] [facility] BMI Calculated 38.82 11/18/[address] [facility] Weight 109.091 11/18/[address] [facility] Height 167.64 cm 08/03/2014 [facility] Weight 107.273 08/03/2014 [facility] BMI Calculated 38.17 08/03/2014 [facility] Encounters Location Location Details Encounter Type Encounter Number Reason For Visit Attending Provider ADM Date DC Date Status Source [facility] Outpatient [id number] CYSTIC STRUCTURE EDJAIME PERRY CROUSE 01/15/2012 Active [facility] Outpatient [id number] Edward Prudencio Adam 08/03/2014 08/04/2014 [facility] OBS Observation Patient [id number] Edward Prudencio Alburtis 11/18/2014 11/18/2014 [facility] Inpatient [id number] Edward Prudencio Adam 12/14/2014 12/16/2014 [facility] [place] [facility] [id number] Edward Prudencio Alburtis 07/24/2016 07/25/2016 [facility] [place] [facility] Outpatient [facility] [place] [facility] [id number] Edward Nugarrett Adam 11/17/2016 11/18/2016 [facility] [place] Departed Emergency Room [id number] ZENIA MEJÍA MD 09/17/2017 09/17/2017 [facility] Outpatient [facility] [place] [facility] [id number] Bandar Padgett 09/19/2017 09/20/2017 [facility] [place] [facility] Andressa Cummings, SALES PLANNER-C: [address] [place] [address], Ph. [id number] Andressa Cummings 09/09/2018 [facility] [place] [id number] Andressa Cummings SALES PLANNER-C: [address] [place] [address], Ph. [id number] Andressa Emiliano 09/09/2018 [facility] [place] [facility] [id number] CORNEL WatkinsC: [address] [place] [address], Ph. [id number] Kaley Morel 09/13/2018 [facility] Outpatient [id number] Non Physician 09/27/2018 09/28/2018 [facility] Outpatient [id number] Gareth Gonzalez 10/07/2018 10/08/2018 [facility] - [facility] - [id number] Yarely Su SALES PLANNER-C: [address] [place] [address], Ph. [id number] Yarely Su 03/15/2019 [facility] Procedures Procedure Code Date Perfomer Comments Source Removal - procedure<sup>1, 2</sup> [id number] 03/11/2012 Rem,oval of benign tumor, L tube and ovarywith blood transfusion [id number] 11/01/2010 [id number] 11[facility]25/2009 [facility] Procedure on Gallbladder [facility] Hysterectomy [facility] Assessment and Plan Assessment and Plan Date Source Extracted from:Title: Postop Anesthesia Note Author: Ivan Johnston MD Date: 12/15/14 Adequate pain control. Doing well. 12/16/[address] [facility] Plan of Care Plan of Care Date Source Discharge Date 09/17/17 10:10pm Disposition HOME, SELF-CARE Condition at Discharge Stable Instructions/Education Provided Diarrhea - Adult Forms Provided Work/School Excuse Prescriptions See Medication Section Referrals VIKAS CHENG (SHELDON ESCOBAR Address: [address] [place] [address] CRYSTAL JOHNSON MD Address: [address] [address] Additional Instructions/Education Follow up with referral PCP if not resolved in 2-3 days. 09/17/2017 [facility] Social History Social History Date Source Tobacco Smoking Status Never Smoker 09/09/2018 [facility] No social history information available. 09/17/2017 [facility] Social History TypeResponse Substance Abuse Use: None. Alcohol Past1 Smoking Status Never smoker; Exposure to Tobacco Smoke None; Cigarette Smoking Last 365 Days No; Reg Smoking Cessation Counseling No entered on: 12/14/14 1socially when not or breastfeedng 11/18/2014 [facility] Social History TypeResponse Substance Abuse Use: None. Alcohol Past1 Smoking Status Never smoker; Exposure to Tobacco Smoke None; Cigarette Smoking Last 365 Days No; Reg Smoking Cessation Counseling No 1socially when not or breastfeedng 11/18/[address] [facility] Social History TypeResponse Substance Abuse Use: None. Alcohol Past1 Smoking Status Never smoker; Exposure to Tobacco Smoke None; Cigarette Smoking Last 365 Days No; Reg Smoking Cessation Counseling No entered on: 12/14/14 1socially when not or breastfeedng 11/18/2014 [facility] Social History TypeResponse 08/04/2014 [facility] Family History No Data Provided for This Section Advance Directives Order Name Results Value Date Source Advance Directives Advance Directives Directive Response Recorded Date/Time Does the patient have an advance directive? No 09/17/17 9:06pm If yes, is advance directive on file with [facility]? No 09/17/17 9:06pm If not on file with [facility] will patient provide a copy? No 09/17/17 9:06pm Do you have a Directive to Physician? No 09/17/17 9:06pm Do you have a Medical Power of Senior Technical Project Manager? No 09/17/17 9:06pm Do you have an out of hospital Do Not Resuscitate Order? No 09/17/17 9:06pm Do you have any special needs we should be aware of? No 09/17/17 9:06pm Do you have a support person here with you today? No 09/17/17 9:06pm Did patient receive Notice of Privacy Practices? Yes 09/17/17 9:06pm Did patient receive patient rights and responsibilities? Yes 09/17/17 9:06pm 09/17/2017 [facility] Functional Status No Data Provided for This Section
--- OUTSIDE RECORDS SUMMARY | 2019-03-16 13:20 | XMS REPORT | Encounter Summary ---
Author Organization Unknown Address [address] [place] [address] Phone [phone] Reason for Visit Medical Complaint Instructions 1. Numbness of face patient follow up phone call - numbness to the face.Send to the ed for further evaluation. 2. Body mass index 30+ - obesity A healthy lifestyle: care instructions 3. Immunization due Discussion Note: None recorded. Plan of Care Patient Instructions patient to f/u with pcp for recheck within a week post ED evaluation. Reminders Provider Appointments None recorded. Lab None recorded. Referral None recorded. Procedures None recorded. Surgeries None recorded. Imaging None recorded. Medications No Medications Reported Medications Administered None recorded. Vitals Height Weight BMI Blood Pressure 5 ft 6 in 195 lbs 31.5 kg/m2 118/80 mm[Hg] Lab Results None recorded. Allergies Code Code System Name Reaction Severity Status Onset NKDA Problems None recorded. Procedures Date Name Performed by Procedure on Gallbladder Information not available Hysterectomy Information not available Vaccine List Vaccine Type influenza, injectable, quadrivalent 03/14/2017 03/25/2018 Tdap 01/23/2017 Social History Tobacco Smoking Status Never Smoker Past Encounters 03/15/2019 Numbness of Face; Body Mass Index 30+ - Obesity; Immunization Due Yarely Su, [facility]: [address] [place] [address], Ph. History of Present Illness Musculoskeletal Complaint Reported By: Patient HPI: Location: Location:. Quality: constant. Severity: same. Duration: started this morning. Onset/Timing: acute. Alleviating factors: nothing helps. Aggravating factors: nothing makes it worse. Associated Symptoms: no fever/chills, no warmth, no redness, no swelling, no drainage, no ecchymosis, no weakness, no tingling, no radiation, no catching/locking, no popping/clicking, no buckling, no grinding, no instability, no weight loss, no change in bowel/bladder habits, no muscle aches, no headache, numbness Review of Systems:ROS as noted in the HPI Review of Systems Basic Reported By: Patient Constitutional: Constitutional: no fever Eyes: Eyes: no eye complaints Gpfw-Rgmo-Zgnlx-Throat: Ears: no ear complaints. Nose: no nose/sinus problems. Mouth/Throat: no sore throat, no bleeding gums, no mouth complaints, no teeth problems Cardiovascular: Cardiovascular: no chest pain, no shortness of breath, no known heart murmur Respiratory: Respiratory: no cough, no wheezing, no shortness of breath Gastrointestinal: Gastrointestinal: no abdominal pain, no vomiting / diarrhea Musculoskeletal: Musculoskeletal: no muscle aches, no muscle weakness, no arthralgias/joint pain, no back pain Skin: Skin: no rashes Neurologic: Neurologic: no loss of consciousness, no weakness, no seizures, no dizziness, no headaches, numbness Physical Exam Adult Basic, Adult Female Complete Reported By: Patient Constitutional: General Appearance: obese. Level of Distress: NAD. Ambulation: ambulating normally Psychiatric: Mental Status: active and alert. Orientation: to time, to place, to person Eyes: Lids and Conjunctivae: non-injected, no discharge, no pallor. Pupils: PERRLA. EOM: EOMI. Sclerae: non-icteric Siv-Ofcj-Aihky-Throat: Ears: no lesions on external ear, no outer ear tenderness, EACs clear, TMs clear. Hearing: no hearing loss. Nose: no lesions on external nose, nares patent, no septal deviation, nasal passages clear, no sinus tenderness, no nasal discharge. Lips, Teeth, and Gums: no mouth or lip ulcers, no bleeding gums, normal dentition. Oropharynx: moist mucous membranes, no erythema, no exudates, tonsils not enlarged Neck: Neck: supple, trachea midline, no masses, FROM. Lymph Nodes: no cervical LAD, no supraclavicular LAD Lungs: Respiratory effort: no dyspnea, no tachypnea, no use of accessory muscles, no intercostal retractions. Auscultation: breath sounds normal Cardiovascular: Heart Auscultation: RRR, no murmurs Musculoskeletal:: Motor Strength and Tone: normal motor strength, normal tone. Joints, Bones, and Muscles: normal movement of all extremities. Extremities: no edema Neurologic: Gait and Station: normal gait, normal station. Cranial Nerves: grossly intact. Sensation: grossly intact. Coordination and Cerebellum: kulyxa-ap-tqpj intact, no tremor Skin: Inspection and palpation: no rash, good turgor
--- OUTSIDE RECORDS SUMMARY | 2019-03-16 13:20 | XMS REPORT | Summary of Care ---
Author Author [facility] [place] Organization [facility] [place] Address Unknown Phone Unavailable Encounter HQ Tiara(FIN) [id number] Date(s): 09/19/17 - 09/19/17 [facility] [place] [address] [place] [phone] Encounter Diagnosis Acute abdomen (Final) - 09/25/17 Discharge Disposition: Home or Self Care Attending Physician: Bandar Padgett MD Vital Signs No data available for this section Problem List Condition Effective Dates Status Health Status Informant [D]Acute Resolved pain(Confirmed) [D]Pelvic Resolved mass(Confirmed) Abdominal mass1 02/21/12 Active Exploratory 03/11/12 Resolved laparotomy(Confirmed ) Malignant tumor of 03/18/12 Active unknown origin2 (Confirmed) 06/08/08 - 08/03/08 Resolved (Confirmed) 02/18/09 - 11/25/09 Resolved (Confirmed) 11/18/14 - 12/14/14 Resolved 1Data migrated from [employer] on 11/21/14. 2Data migrated from [employer] on 11/21/14. Allergies, Adverse Reactions, Alerts Substance Reaction Severity Status NKDA Active Medications No data available for this section Results No data available for this section Immunizations Given and Recorded Vaccine Date Status Refusal Reason influenza virus vaccine, inactivated 03/16/12 Given Procedures Procedure Date Related Diagnosis Body Site Status Removal - procedure1, 2 03/11/12 Completed Cholecystectomy 11/01/10 Completed section 11/25/09 Completed 1Rem,oval of benign tumor, L tube and ovary 2with blood transfusion Social History Social History Type Response Substance Abuse Use: None. Alcohol Past1 Smoking Status Never smoker; Exposure to Tobacco Smoke None; Cigarette Smoking Last 365 Days No; Reg Smoking Cessation Counseling No entered on: 12/14/14 1socially when not or breastfeedng Assessment and Plan No data available for this section
--- OUTSIDE RECORDS SUMMARY | 2019-03-16 13:20 | XMS REPORT | Encounter Summary ---
Author Organization Unknown Address [address] [place] [address] Phone [phone] Reason for Visit Medical Complaint Instructions 1. Urinary tract infectious disease Bactrim DS 800 mg-160 mg tablet urinalysis, dipstick culture, urine 2. On examination - initial high BP 3. Overweight Discussion Note: None recorded. Patient educational handouts: No information available. Plan of Care Reminders Provider Appointments None recorded. Lab Urinalysis, Dipstick 09/13/2018 [facility] Culture, Urine 09/13/2018 [facility] Referral None recorded. Procedures None recorded. Surgeries None recorded. Imaging None recorded. Medications Name Start Date Bactrim DS 800 mg-160 mg tablet Take 1 tablet every 12 hours by oral route for 7 days. fluticasone propionate 50 mcg/actuation nasal spray,suspension [place] 2 sprays every day by intranasal route for 30 days. Junel Fe 24 1 mg-20 mcg (24)/75 mg (4) tablet levocetirizine 5 mg tablet Take 1 tablet every day by oral route for 30 days. Medications Administered None recorded. Vitals Height Weight BMI Blood Pressure 5 ft 6 in 187 lbs 30.2 kg/m2 112/80 mm[Hg] Lab Results Date Name Specimen Result Interpretation Description Value Range Status Address 09/09/2018 Culture, Respiratory THROAT Upper Respiratory Culture final report Final [facility]: [address] THROAT Result 1 rrf Final [facility]: [address] Urinalysis, Dipstick Color : Yellow [facility]: [address] [place] [address] Clarity : Clear [facility]: [address] [place] [address] Leukocytes : Trace [facility]: [address] [place] [address] Nitrites : Negative [facility]: [address] [place] [address] Urobilinogen : Normal [facility]: [address] [place] [address] Protein : Negative [facility]: [address] [place] [address] Ph : 6.5 [facility]: [address] [place] [address] Blood : Non-hemolized Trace [facility]: [facility] Specific [place] : 1.005 [facility]: [facility] Ketones : Negative [facility]: [facility] Bilirubin : Negative [facility]: [facility] Glucose Negative [facility]: [address] [place] [address] Rapid Strep Group a, Throat Result positive [facility]: [address] [place] [address] Swab Location Left and Right tonsillar pillars [facility]: [address] [place] [address] Allergies Code Code System Name Reaction Severity Status Onset NKDA Problems Name Status Onset Date Source Cyst of Ovary Active 09/09/2018 Procedures Date Name Performed by Procedure on Gallbladder Information not available Hysterectomy Information not available Vaccine List Vaccine Type influenza, injectable, quadrivalent 03/14/2017 03/25/2018 Tdap 01/23/2017 Social History Smoking Status Never Smoker Past Encounters 09/13/2018 Urinary Tract Infectious Disease; On Examination - Initial High BP; Overweight [facility]: [address] [place] [address], Ph. 09/09/2018 Posterior Rhinorrhea; Acute Pharyngitis; Dysfunction of Eustachian Tube; Elevated Blood-pressure Reading without Diagnosis of Hypertension; Body Mass Index 30+ - Obesity [facility]: [address] [place] [address], Ph. History of Present Illness [id number] Reported By: Patient HPI: Quality: burning. Severity: worsening, moderate. Duration: started last night, constant. Onset/Timing: worse, sudden. Context: not sexually active, no known exposure to STD, no prior history of STDs, denies possible , heterosexual. Associated Symptoms: no fever/chills, no flank pain, no jaundice, no blood in the urine, no pain during urination, no vaginal discharge, no blisters on genitals, no rash on genitals, no muscle aches, no headache, burning sensation during urination Review of Systems:ROS as noted in the HPI Review of Systems Basic Reported By: Patient Physical Exam Adult Basic, Adult Female Complete Reported By: Patient Constitutional: General Appearance: healthy-appearing, well-nourished, well-developed. Level of Distress: NAD. Ambulation: ambulating normally Psychiatric: Mental Status: active and alert. Orientation: to time, to place, to person Lungs: Respiratory effort: no dyspnea, no tachypnea, no use of accessory muscles, no intercostal retractions. Auscultation: breath sounds normal Cardiovascular: Heart Auscultation: RRR, no murmurs. Neck vessels: no carotid bruits. Pulses including femoral / pedal: normal throughout Skin: Inspection and palpation: no rash, no lesions, no ulcer, no abnormal nevi, no induration, no nodules, good turgor, no jaundice. Nails: normal Back: Thoracolumbar Appearance: normal curvature Breast: Breast: breasts normal except where noted, no masses, no abnormal secretions, no skin changes Abdomen: Bowel Sounds: normal. Inspection and Palpation: soft, non-distended, no tenderness, no guarding, no rebound tenderness, no masses, no CVA tenderness. Liver: non-tender, no hepatomegaly. Spleen: non-tender, no splenomegaly. Hernia: none palpable
--- OUTSIDE RECORDS SUMMARY | 2019-03-16 13:20 | XMS REPORT | Encounter Summary ---
Author Organization Unknown Address [address] [place] [address] Phone [phone] Reason for Visit Medical Complaint Instructions 1. Posterior rhinorrhea levocetirizine 5 mg tablet rhinitis: care instructions 2. Acute pharyngitis rapid strep group A, throat sore throat: care instructions culture, respiratory 3. Dysfunction of eustachian tube fluticasone propionate 50 mcg/actuation nasal spray,suspension eustachian tube problems: care instructions 4. Elevated blood-pressure reading without diagnosis of hypertension 5. Body mass index 30+ - obesity Discussion Note Pt is aaox3 and in NAD; verbalizes understanding of all instructions and has no further questions at this time Plan of Care Patient Instructions Please take medications as instructed. Advise rest, fluids, good hand hygiene. ER precautions advised for high fever, shortness of breath, difficulty breathing, chest pain, or any new/worsening symptoms. Reminders Provider Appointments None recorded. Lab Rapid Strep Group a, Throat 09/09/2018 [facility] Culture, Respiratory 09/09/2018 [facility] Referral None recorded. Procedures None recorded. Surgeries None recorded. Imaging None recorded. Medications Name Start Date fluticasone propionate 50 mcg/actuation nasal spray,suspension [place] 2 sprays every day by intranasal route for 30 days. Fe 24 1 mg-20 mcg (24)/75 mg (4) tablet levocetirizine 5 mg tablet Take 1 tablet every day by oral route for 30 days. Medications Administered None recorded. Vitals Height Weight BMI Blood Pressure 5 ft 6 in 187 lbs 30.2 kg/m2 126/74 mm[Hg] Lab Results Date Name Specimen Result Interpretation Description Value Range Status Address Rapid Strep Group a, Throat Result positive [facility]: [address] [place] [address] Swab Location Left and Right tonsillar pillars [facility]: [address] [place] [address] Allergies Code Code System Name Reaction Severity Status Onset NKDA Problems Name Status Onset Date Source Cyst of Ovary Active 09/09/2018 Procedures Date Name Performed by Procedure on Gallbladder Information not available Hysterectomy Information not available Vaccine List Vaccine Type influenza, injectable, quadrivalent 03/14/2017 03/25/2018 Tdap 01/23/2017 Social History Smoking Status Never Smoker Past Encounters 09/09/2018 Posterior Rhinorrhea; Acute Pharyngitis; Dysfunction of Eustachian Tube; Elevated Blood-pressure Reading without Diagnosis of Hypertension; Body Mass Index 30+ - Obesity Andressa Cummings, [facility]: [address] [place] [address], Ph. History of Present Illness Throat-Oral Complaint Reported By: Patient HPI: Location: throat. Quality: sore throat. Duration: 1 days. Onset/Timing: sudden. Context: sick contact. Associated Symptoms: no fever, no headache, no sputum production, no shortness of breath, no wheezing, no change in number of pillows needed to sleep at night, no sweats, no significant weight gain, no significant weight loss, no morning cough, no vomiting, no diarrhea, no rash, no nausea, fever, sweats, sore throat Review of Systems:ROS as noted in the HPI Review of Systems Basic Reported By: Patient Physical Exam Adult Basic, Adult Female Complete Reported By: Patient Constitutional: General Appearance: obese. Level of Distress: NAD. Ambulation: ambulating normally Psychiatric: Mental Status: active and alert. Orientation: to time, to place, to person Eyes: Lids and Conjunctivae: non-injected, no discharge, no pallor [id number]-Throat: Ears: no lesions on external ear, no outer ear tenderness, EACs clear, TMs clear. Hearing: no hearing loss. Nose: no lesions on external nose, nares patent, no septal deviation, nasal passages clear, no sinus tenderness, nasal discharge--rhinorrhea, post nasal drip. Lips, Teeth, and Gums: no mouth or lip ulcers, no bleeding gums, normal dentition. Oropharynx: moist mucous membranes, no erythema, no exudates, tonsils not enlarged Neck: Neck: supple, FROM. Lymph Nodes: no cervical LAD Lungs: Respiratory effort: no dyspnea, no tachypnea, no use of accessory muscles, no intercostal retractions. Auscultation: breath sounds normal Cardiovascular: Heart Auscultation: RRR, no murmurs
--- OUTSIDE RECORDS SUMMARY | 2019-03-16 13:20 | XMS REPORT | Summary of Care ---
Author Author [facility] Organization [facility] Address Unknown Phone Unavailable Encounter HQ Donna_doc(FIN) [id number] Date(s): 09/27/18 - 09/27/18 [facility] [address] [place] [address]- Encounter Diagnosis Encounter for screening mammogram for malignant neoplasm of breast (Final) - Discharge Disposition: Home or Self Care Attending Physician: Physician, Non Associated MD Vital Signs No data available for [...]
--- OUTSIDE RECORDS SUMMARY | 2019-03-16 13:20 | XMS REPORT | Summary of Care ---
Author Author [facility] Organization [facility] Address Unknown Phone Unavailable Encounter HQ Tiara(FIN) [id number] Date(s): 10/07/18 - 10/07/18 [facility] [address] [place] [address]- [phone] Discharge Disposition: Home or Self Care Attending Physician: Gareth Rodriguez MD Referring Physician: Gareth Rodriguez MD Vital Signs No data available for [...]
[2019-03-16 14:11] LABS: BASOPHILS % 0.4 % (0.0-1.0); EOSINOPHILS # (AUTO) 0.1 (0.0-0.4); EOSINOPHILS % 0.7 % (0.0-6.0); HEMATOCRIT 38.3 % (34.2-44.1); HEMOGLOBIN 12.6 g/dL (12.0-16.0); LYMPHOCYTES # (AUTO) 2.7 (1.0-3.2); LYMPHOCYTES % 28.6 % (18.0-39.1); MEAN CORPUSCULAR HEMOGLOBIN 28.1 pg (28-32); MEAN CORPUSCULAR HGB CONC 32.9 g/dL (31-35); MEAN CORPUSCULAR VOLUME 85.5 fL (81-99); MONOCYTES # (AUTO) 0.6 (0.2-0.8); NEUTROPHILS % 63.8 % (38.7-80.0); PLATELET COUNT 245 x10e3/uL (140-360); RED BLOOD COUNT 4.48 x10e6/uL (3.6-5.1); RED CELL DISTRIBUTION WIDTH 12.1 % (11.7-14.4)
--- NOTE | 2019-03-16 14:23 | NUR ---
PATIENT PLACED IN ROOM 2
--- NOTE | 2019-03-16 14:27 | Diagnostic Imaging Report ---
Examination: Single AP view of the chest. COMPARISON: None. INDICATION: Facial numbness DISCUSSION: Lines/tubes: None. Lungs: The lungs are well inflated and clear. There is no evidence of pneumonia or pulmonary edema. Pleura: There is no pleural effusion or pneumothorax. Heart and mediastinum: The heart and the mediastinum are unremarkable. Bones and soft tissues: No acute bony abnormalities. IMPRESSION: 1. No acute cardiopulmonary abnormalities. Signed by: Dr. Sekou Strauss M.D. on 03/16/2019 2:24 PM
[2019-03-16 14:29] LABS: ALANINE AMINOTRANSFERASE 12 IU/L (0-55); ALBUMIN 3.8 g/dL (3.5-5.0); ALKALINE PHOSPHATASE 83 IU/L (40-150); ANION GAP 11.8 mmol/L (8-16); BLOOD UREA NITROGEN 10 mg/dL (7-26); BUN/CREATININE RATIO 13 (6-25); CALCIUM 9.5 mg/dL (8.4-10.2); CARBON DIOXIDE 26 mmol/L (22-29); CHLORIDE 105 mmol/L (98-107); CREATINE KINASE 68 IU/L (29-168); CREATININE, SERUM 0.75 mg/dL (0.57-1.11); EST GLOMERULAR FILTRATION RATE > 60 ML/MIN (60-); GLUCOSE 88 mg/dL (74-118); POTASSIUM 3.8 mmol/L (3.5-5.1); SODIUM 139 mmol/L (136-145)
--- NOTE | 2019-03-16 14:30 | Diagnostic Imaging Report ---
Exam: Head CT without contrast History: Right facial numbness, possible stroke. Comparison studies: None Technique: Axial images were obtained from the skull base to the vertex. Coronal and sagittal images reconstructed from the axial data. Dose modulation, iterative reconstruction, and/or weight based adjustment of the mA/kV was utilized to reduce the radiation dose to as low as reasonably achievable. Radiation dose: Total DLP: 921 mGy*cm. Estimated effective dose: DLP x 0.015 Intravenous contrast: None Findings: Scalp: No abnormalities. Bones: No fractures, blastic or lytic lesions. Brain sulci: Appropriate for age. Ventricles: Normal in size and configuration. No hydrocephalus. Extra-axial spaces: No masses, no fluid collection. Parenchyma: No abnormal densities. No masses, hemorrhage, acute or chronic vascular insults. Sellar/suprasellar region: No abnormalities. Craniocervical junction: Patent foramen magnum. No Chiari one malformation. Included paranasal sinuses: Clear. Middle ear and included mastoid cavities: Clear. IMPRESSION: No abnormalities. Signed by: Dr. Sekou Wilkes M.D. on 03/16/2019 2:26 PM
--- NOTE | 2019-03-16 14:30 | NUR ---
DR. PAIGE AT BEDSIDE EVALUATING PATIENT
[2019-03-16 15:00] VITALS: BP 132/94
== END 2019-03-16 15:02 | disposition home or self-care (01) ==
LOC: ER 13:16
DX: G51.0 Bell's palsy (principal)
CPT/HCPCS: 36415; 70450; 71045; 80053; 82550; 82553; 84484; 85025; 93005; 99284

== ENCOUNTER 2019-03-29 19:58 | Emergency (ER) | payer OTHER ==
[~2019-03-29] VITALS: Ht 167.6 cm; Wt 86.2 kg
--- OUTSIDE RECORDS SUMMARY | 2019-03-29 20:00 | XMS REPORT ---
Author [facility] Address Unknown Phone Unavailable Care Team Providers Care Security Sales Consultant Name Role Phone Wilfredo PAIGE Unavailable Unavailable Problems This patient has no known problems. Allergies, Adverse Reactions, Alerts This patient has no known allergies or adverse reactions. Medications This patient has no known medications. Encounters Start Date/Time End Date/Time Encounter Type Admission Type Attending [facility] Care Facility Care Department Encounter ID 2018-10-02 10:58:51 Outpatient [facility] [id number] 2019-03-16 11:39:00 2019-03-16 11:39:00 Emergency E [facility] [id number] 2018-09-27 10:37:00 2018-09-27 10:37:00 Outpatient [facility] [id number] Results Test Description Test Time Test Comments Text Results Atomic Results Result Comments CT BRAIN WO 2019-03-16 14:23:00 [place] [address] Patient Name: DONN MTZ MR #: [id number] : 1975 Age/Sex: 43/F Req #: [id number] Adm Physician: Ordered by: ANABEL PAIGE MD Report #: [id number] Location: ER Room/Bed: Procedure: [id number] CT/CT BRAIN WO Exam Date: 03/16/19 Exam Time: 1409 REPORT STATUS: Signed Exam: Head CT without contrast History: Right facial numbne ss, possible stroke. Comparison studies: None Technique: Axial images were obtained from the skull base to the vertex. Coronal and sagittal images reconstructed from the axial data. Dose modulation, iterative reconstruction, and/or weight based adjustment of the mA/kV was utilized to reduce the radiation dose to as low as reasonably achievable. Radiation dose: Total DLP: 921 mGy*cm. Estimated effective dose: DLP x 0.015 Intravenous contrast: None Findings: Scalp: No abnormalities. Bones: No fractures, blastic or lytic lesions. Brain sulci: Appropriate for age. Ventricles: Normal in size and configuration. No hydrocephalus. Extra-axial spaces: No masses, no fluid collection. Parenchyma: No abnormal densities. No masses, hemorrhage, acute or chronic vascular insults. Sellar/suprasellar region: No abnormalities. Craniocervical junction: Patent foramen magnum. No Chiari one malformation. Included paranasal sinuses: Clear. Middle ear and included mastoid cavities: Clear. IMPRESSION: No abnormalities. Signed by: Dr. Griselda Wilkes M.D. on 03/16/2019 2:26 PM Dictated By: GRISELDA WILKES MD 1426 Transcribed By: ONEYDA on 03/16/19 1426 COPY TO: ANABEL PAIGE MD CHEST SINGLE (PORTABLE) 2019-03-16 14:22:00 [place] [address] Patient Name: DONN MTZ MR #: [id number] : 1975 Age/Sex: 43/F Req #: [id number] Adm Physician: Ordered by: ANABEL PAIGE MD Report #: [id number] Location: ER Room/Bed: Procedure: [id number] DX/CHEST SINGLE (PORTABLE) Exam Date: 03/16/19 Exam Time: 1409 REPORT STATUS: Signed Examination: Single AP view of the chest. ZULY RISON: None. INDICATION: Facial numbness DISCUSSION: Lines/tubes: None. Lungs: The lungs are well inflated and clear. There is no evidence of pneumonia or pulmonary edema. Pleura: There is no pleural effusion or pneumothorax. Heart and mediastinum: The heart and the mediastinum are unremarkable. Bones and soft tissues: No acute bony abnormalities. IMPRESSION: 1. No acute cardiopulmonary abnormalities. Signed by: Dr. Griselda Hare M.D. on 03/16/2019 2:24 PM Dictated By: GRISELDA HARE MD 1424 Transcribed By: ONEYDA on 03/16/19 1424 COPY TO: ANABEL PAIGE MD
== END 2019-03-29 21:24 | disposition home or self-care (01) ==
LOC: ER 19:58
DX: G50.0 Trigeminal neuralgia (principal)
CPT/HCPCS: 99282

== ENCOUNTER → 2019-04-08 | Outpatient (CLI) | payer OTHER ==
--- NOTE | 2019-04-08 15:39 | Diagnostic Imaging Report ---
Exam: Brain MRI without IV contrast History: Trigeminal neuralgia, numbness in right side of face. Comparison studies: Head CT 03/16/2019 Technique: Sagittal and axial T1 FLAIR, axial coronal T2 flair, axial DWI, axial T2*GRE through the whole brain and dedicated 3-D T2 with axial, coronal and sagittal reformats and axial 3-D T1 through the skull base. Intravenous contrast: None Findings: Scalp: Normal in signal. No masses. Bone marrow: Normal in signal intensity. Brain sulci: Appropriate for age. Ventricles: Normal in size. No hydrocephalus. Extra axial spaces: No mass, no fluid collection. Parenchyma: No abnormal signal intensities. No masses, hemorrhage, acute or chronic vascular insults. Trigeminal nerves: No mass or abnormality identified along the included courses of the trigeminal nerves bilaterally. No signal abnormalities within the pedicles caves or within the pterygopalatine fossa. The cavernous sinuses appear symmetric in size and signal intensity. A small vascular loop courses along the superior margin of the cisternal segment of the right trigeminal nerve (3-D axial T2 sequence series 6, image 37). IACs: Normal nerves VII and VIII. Labyrinths: Grossly normal formation. No abnormal signal intensity or enhancement. Mastoids: No abnormal signal intensity or enhancement. Suprasellar region: No abnormalities. Craniocervical junction: Patent foramen magnum. No Chiari malformation. Vessels: Normal flow-voids in the arteries and sinuses. IMPRESSION: 1. No intracranial abnormalities. 2. Small vascular loop courses along the margin of the cisternal segment of the right trigeminal nerve which is nonspecific and can often be seen normally in asymptomatic patients. Moreover, vascular loop has also been reported as an etiology for trigeminal neuralgia in the appropriate clinical setting. Signed by: Dr. Sekou Wilkes M.D. on 04/08/2019 3:36 PM
== END ==
LOC: MRI 13:33
PROVIDERS: ATTEND Psychiatry & Neurology Clinical Neurophysiology
DX: G50.0 Trigeminal neuralgia (principal)
CPT/HCPCS: 70551